=== PATIENT | male | born 1980 | race Caucasian/White ===

== ENCOUNTER 2021-04-24 12:33 | Emergency (ER) | payer OTHER, SELFPAY ==
--- NOTE | ~2021-04-24 | CT_ITS ---
EXAMINATION: CT ANGIOGRAM ABDOMEN AND PELVIS CLINICAL INFORMATION: Pain. Rule out dissection. COMPARISON: None TECHNIQUE: Multiple axial images were obtained through the abdomen and pelvis following the administration of 85 mL of Omnipaque 350 intravenous contrast. Images were reviewed on a dedicated 3-D workstation. This CT examination was performed using dose optimization techniques as appropriate, variously including the following: *Automated exposure control *Adjustment of mA and/or kV according to patient size (this includes techniques or standardized protocols for targeted exams where dose is matched to indication/reason for exam; i.e. extremities or head) *Use of iterative reconstruction technique DLP: [address] of the chest, abdomen and pelvis mGy-cm FINDINGS: The abdominal aorta is normal in caliber. No evidence of aneurysm or dissection is seen. The celiac axis, SMA and BISI are patent. There are 2 renal arteries bilaterally. There is a small accessory right renal artery supplying the upper pole. There is a small accessory left renal artery supplying the lower pole. The common, internal and external iliac and common femoral arteries are patent and normal in caliber. The femoral bifurcations are patent. The liver appears enlarged and low in attenuation suggestive of fatty infiltration. Liver is otherwise unremarkable. No focal liver lesion or biliary duct dilatation. The gallbladder is normal. The spleen is enlarged and measures 15 cm in length. Pancreas is normal. The adrenal glands and kidneys are normal. The bladder and prostate gland are normal. Small and large bowel is unremarkable. The appendix is unremarkable. The stomach is unremarkable. No ascites. No free air. No adenopathy. There is a small umbilical hernia containing fat. There is a right inguinal hernia containing fat. Review of bone windows is normal. CT/CT angio abdomen pelvis IMPRESSION: Accessory renal arteries bilaterally otherwise normal CTA of the abdomen and pelvis. No evidence of aneurysm or dissection. Enlarged fatty liver and enlarged spleen. Fleischner guidelines were followed.
--- NOTE | ~2021-04-24 | CT_ITS ---
EXAMINATION: CT ANGIOGRAM CHEST CLINICAL INFORMATION: Chest pain. Rule out dissection. COMPARISON: None TECHNIQUE: Multiple axial images were obtained through the chest after the administration of 85 mL of Omnipaque 350 intravenous contrast. Extensive vascular post-processing including two-dimensional and three-dimensional reformatted images were created and reviewed on an independent workstation. This CT examination was performed using dose optimization techniques as appropriate, variously including the following: *Automated exposure control *Adjustment of mA and/or kV according to patient size (this includes techniques or standardized protocols for targeted exams where dose is matched to indication/reason for exam; i.e. extremities or head) *Use of iterative reconstruction technique DLP: 613 mGy-cm for combined CT of the chest, abdomen and pelvis FINDINGS: The thoracic aorta is normal in caliber. No aneurysm or dissection is seen. The great vessel origins are patent and normal in caliber. The heart does not appear enlarged. There is no pericardial effusion. There are no enlarged hilar or mediastinal lymph nodes. No pulmonary embolism is seen. The lungs are clear. There is no pleural effusion, pleural thickening or pneumothorax. No chest wall mass or enlarged axillary lymph nodes are seen. Review of bone windows is normal. CT/CT angio chest aorta IMPRESSION: Normal chest CTA. No evidence of aneurysm or dissection. Fleischner guidelines were followed.
--- NOTE | 2021-04-24 12:35 | ECG_ITS ---
Test Reason : CHEST PAIN Blood Pressure : / mmHG Vent. Rate : 084 BPM Atrial Rate : 084 BPM P-R Int : 158 ms QRS Dur : 100 ms QT Int : 354 ms P-R-T Axes : 033 -28 007 degrees QTc Int : 418 ms Normal sinus rhythm Minimal voltage criteria for LVH, may be normal variant ( [place] product ) Borderline ECG No previous ECGs available Referred By: Generic ED Physician Electronically Signed By:MAYRA JAQUEZ MD
[2021-04-24 12:57] VITALS: BP 155/101; PULSE 85; RESP 16; TEMP 37.2; O2SAT 97; BMI 27.9
--- NOTE | 2021-04-24 12:57 | ED.CHESTPAIN ---
HPI - Chest Pain General Chief Complaint: Chest Pain Stated Complaint: CP Time Seen by Provider: 04/24/21 12:56 Source: patient and EMS Mode of arrival: EMS Limitations: no limitations History of Present Illness HPI narrative: Patient is a 40 year old male presenting to the emergency department today with chest pain. Patient states that 2 hours ago, he began to have chest pain that he describes as being heavy and on his left side. Patient states that he does not have any cardiac problems. Patient states that he was diagnosed with a lung issue last week by his PCP and given a steroid which he finished last Saturday. Patient states that he has a history of Type 2 diabetes. Patient denies any dizziness, lightheadedness, abdominal pain, nausea, vomiting, fever, chills, blurry vision, double vision, loss of vision, difficulty breathing, shortness of breath, back pain, night sweats, pain with urination, increased urinary frequency, increased urinary urgency, blood in his urine or stool, syncope or a near syncopal episode, recent trauma or falls, bowel incontinence, bladder incontinence, bowel retention, bladder retention, or any other complaints at this time. MD complaint: chest pain Onset (ago): minute(s) Timing of current episode: constant Prior episodes: No Onset: during exertion Pain location: substernal and left chest Pain radiation: none Severity: mild Pain scale (0-10): 4 Quality: dull Relieving factors: nothing Exacerbating factors: nothing Context: recent illness Associated symptoms: diaphoresis Treatment prior to arrival: aspirin Risk Factors Coronary artery disease risk factors: diabetes Thoracic aortic dissection risk factors: none Related Data Allergies Allergy/AdvReac Type Severity Reaction Status Date / Time No Known Allergies Allergy Unverified 12/17/19 15:16 Review of Systems Constitutional: Constitutional: Reports no additional constitutional complaints, Denies chills, Denies fever(s) and Denies night sweats Eyes: Eyes: Reports no additional eye complaints, Denies blurry vision, Denies change in vision, Denies diplopia, Denies eye discharge, Denies loss of vision and Denies eye pain ENT: Denies dizziness Cardiovascular: Cardiovascular: Reports no additional cardiovascular complaints, Reports chest pain, Denies lightheadedness, Denies Loss of Consciousness and Denies dyspnea Respiratory: Respiratory: Reports no additional respiratory complaints and Denies dyspnea Gastrointestinal: Gastrointestinal: Reports no additional gastrointestinal complaints, Denies abdominal pain, Denies melena, Denies hematochezia, Denies change in bowel habits and Denies change in stool character Genitourinary: Genitourinary: Reports no additional male genitourinary complaints, Denies hematuria, Denies oliguria, Denies difficulty urinating, Denies dysuria, Denies urinary frequency, Denies urinary hesitancy, Denies urinary incontinence and Denies urinary urgency Musculoskeletal: Musculoskeletal: Reports no additional musculoskeletal complaints, Denies numbness and Denies tingling Neurologic: Denies dizziness, Denies loss of vision, Denies numbness and Denies tingling Psychiatric: Psychiatric: Reports no additional psychiatric complaints Endocrine: Endocrine: Reports no additional endocrine complaints Hematologic/Lymphatic: Hematologic/Lymphatic: Reports no additional hematologic/lymphatic complaints Allergic/Immunologic: Allergic/Immunologic: Reports no additional allergic/immunologic complaints PMFSH Past Medical History Attestation statement: The following information was validated with the patient. Medical History (Updated 04/24/21 @ 16:33 by LAKSHMI Gomez) Diabetes Social History Social History Advance Directives: No Advance Directives Information Provided: No Physical Exam Vital Signs: Vital Signs: Last Vital Signs Temp 98.9 F 04/24/21 12:57 Pulse 85 04/24/21 12:57 Resp 16 04/24/21 12:57 BP 155/101 H 04/24/21 12:57 Pulse Ox 97 04/24/21 12:57 BMI result Body Mass Index 27.9 Const: General: cooperative, no acute distress, alert and awake Nutritional Appearance: well nourished Orientation/consciousness: patient oriented x3 Limitations: no limitations HENMT: Head: Yes normal to inspection and Yes atraumatic Ears: hearing grossly normal bilaterally and external ears normal General nose exam: Normal external nose present, no nasal discharge noted and no epistaxis Face and sinus: Yes normal facial exam, No abrasion and No laceration Mouth: Normal oral and palatal mucosa present, no drooling and no muffled voice Eyes: General: appearance normal, both eyes and all related structures Periorbital: periorbital findings normal Eyelids: Yes eyelids normal Conjunctivae: conjunctivae normal Pupils: Equal, round and reactive pupils present EOM: EOMs intact bilaterally Neck: Neck: Yes normal visual inspection, Yes full ROM and Yes no lymphadenopathy Chest: Chest palpation & inspection: normal inspection of the chest Resp: Effort & Inspection: normal respiratory effort and able to speak in complete sentences Auscultation: clear to auscultation bilaterally Cardio: Jugular venous distension: no JVD Rate: regular rate Rhythm: regular rhythm GI: Inspection: Yes normal to inspection Neuro: General: patient oriented x3 and moves all extremities Cranial nerves: Yes Equal, round and reactive pupils present Cognition (Neuro): normal cognition Motor exam (neuro): 5/5 motor strength present throughout Sensory Exam: Normal double simultaneous stimulation for sensation Coordination: [id number] test normal Extrem: General: Yes normal to inspection, Yes full ROM and Yes capillary refill normal Psych: Appearance: grossly normal Mental Status: mental status grossly normal Affect: normal affect Attitude: cooperative Thought process: Normal thought process present Thought content: Normal thought content present Insight: Good insight present (Psych) Course Course Course Narrative: Chest CTA showed no acute process. Abdominal CTA showed: Accessory renal arteries bilaterally. No evidence of aneurysm or dissection. Enlarged fatty liver Enlarged spleen. MDM - Chest Pain MDM Narrative Medical decision making narrative: Patient is a 40 year old male presenting to the emergency department today with chest pain. Patient's physical exam was unremarkable. Patient's blood work showed an elevated blood sugar however, this is not abnormal as the patient just completed oral steroids and is a type 2 diabetic. Patient's EKG was unremarkable. Patient's CTA of the chest showed no acute process. Patient's CTA of the abdomen showed fatty liver and an enlarged spleen but was otherwise negative. I explained my physical exam findings as well as all test results to the patient. I answered all questions asked by the patient. Patient received IV fluids and full dose aspirin which he stated helped his symptoms significantly. I stressed the importance of the patient taking his medication as prescribed. 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 I stressed the importance of the patient returning to the emergency department immediately if his symptoms were to worsen or if he were to develop any dizziness, shortness of breath, difficulty breathing, chest pain, blurry vision, loss of vision, nausea, vomiting, abdominal pain, fever, chills, back pain, or any other complaints. Patient verbalized agreement and understanding with this treatment plan and discharge. Differential Diagnosis Differential diagnosis: Likely stable angina, unstable angina pectoris, atypical chest pain and st elevation myocardial infarction Medical Records Data Attestation: I reviewed the patient's medical records. Lab Data Attestation: I reviewed the patient's lab results. Result diagrams: 04/24/21 14:07 04/24/21 14:06 Labs: Lab Results 04/24/21 04/24/21 04/24/21 Range/Units 14:06 14:06 14:07 WBC 4.0 L (4.8-10.8) X10*3/uL RBC 5.34 (4.60-5.80) X10*6/uL Hgb 16.1 (14.0-18.0) g/dl Hct 44.5 (42.0-52.0) % MCV 83.3 (80.0-98.0) fL MCH 30.1 (27.0-33.0) pg MCHC 36.2 H (31.0-36.0) g/dl RDW 11.7 (11.0-16.0) % Plt Count 203 (160-400) X10*3/uL MPV 11.0 (9.4-12.4) fL Immature Gran % (Auto) 0.5 H (0.0-0.4) % Neut % (Auto) 56.4 (45-73) % Lymph % (Auto) 29.2 (20-40) % [place] % (Auto) 11.9 H (2-11) % Eos % (Auto) 1.5 (0-4) % Baso % (Auto) 0.5 (0-2) % Lymph # (Auto) 1.2 (1.2-4.9) X10*3/uL [place] # (Auto) 0.5 (0.1-1.2) X10*3/uL Eos # (Auto) 0.1 (0.0-0.4) X10*3/uL Baso # (Auto) 0.0 (0.0-0.2) X10*3/uL Abs Immat Gran (auto) 0.02 (0.00-0.03) X10*3/uL Absolute Neuts (auto) 2.3 (2.0-8.3) x10*3/uL Absolute Nucleated RBC 0.000 (0.0-0.012) X10*3/uL Nucleated RBC % (auto) 0.0 (0.0-0.2) /100WBC PT (9.9-13.0) SEC INR (0.9-1.1) APTT (24.1-38.0) SEC Sodium 134 L (135-145) mmol/L Potassium 4.4 (3.3-5.1) mmol/L Chloride 102 (96-108) mmol/L Carbon Dioxide 23 (22-29) mmol/L Anion Gap 13 (12-20) BUN 10 (9-16) mg/dL Creatinine 0.85 (0.5-1.4) mg/dL Estim Creat Clear Calc 126.7 Estimated GFR > 60 Fasting Glucose 321 H (60-99) mg/dL Lactic Acid (0.5-2.0) mmol/L Calcium 10.1 (8.4-10.2) mg/dL Magnesium 2.2 (1.6-2.6) mg/dL Total Bilirubin 0.8 (0.0-1.0) mg/dL AST 25 (5-37) U/L ALT 41 H (0-40) U/L Alkaline Phosphatase 73 (39-117) U/L Troponin I High Sens (<3.5-35.0) ng/L Total Protein 7.2 (6.5-8.0) g/dL Albumin 4.6 (3.5-5.0) g/dL Urine Color YELLOW Urine Appearance CLEAR Urine pH 5.5 (5.0-8.0) Ur Specific Wilmer 1.015 (1.005-1.025) Urine Protein NEG (NEG-TRACE) MG/DL Urine Glucose (UA) >=1000 H (NEG) MG/DL Urine Ketones NEG (NEG) MG/DL Urine Blood NEG (NEG) Urine Nitrite NEG (NEG) Ur Leukocyte Esterase NEG (NEG) Urine RBC 0 (0) /HPF Urine WBC 0 (0-4) /HPF Ur Squamous Epith Cells NONE /LPF Urine Bacteria NONE /LPF COVID-19 (JAZIEL) (Negative) COVID-19 Clin Com Influenza Type A (HUSEYIN) (Negative) Influenza Type B (HUSEYIN) (Negative) Influenza A & B Note 04/24/21 04/24/21 04/24/21 Range/Units 14:07 14:07 14:07 WBC (4.8-10.8) X10*3/uL RBC (4.60-5.80) X10*6/uL Hgb (14.0-18.0) g/dl Hct (42.0-52.0) % MCV (80.0-98.0) fL MCH (27.0-33.0) pg MCHC (31.0-36.0) g/dl RDW (11.0-16.0) % Plt Count (160-400) X10*3/uL MPV (9.4-12.4) fL Immature Gran % (Auto) (0.0-0.4) % Neut % (Auto) (45-73) % Lymph % (Auto) (20-40) % [place] % (Auto) (2-11) % Eos % (Auto) (0-4) % Baso % (Auto) (0-2) % Lymph # (Auto) (1.2-4.9) X10*3/uL [place] # (Auto) (0.1-1.2) X10*3/uL Eos # (Auto) (0.0-0.4) X10*3/uL Baso # (Auto) (0.0-0.2) X10*3/uL Abs Immat Gran (auto) (0.00-0.03) X10*3/uL Absolute Neuts (auto) (2.0-8.3) x10*3/uL Absolute Nucleated RBC (0.0-0.012) X10*3/uL Nucleated RBC % (auto) (0.0-0.2) /100WBC PT 10.7 (9.9-13.0) SEC INR 0.9 (0.9-1.1) APTT 29.9 (24.1-38.0) SEC Sodium (135-145) mmol/L Potassium (3.3-5.1) mmol/L Chloride (96-108) mmol/L Carbon Dioxide (22-29) mmol/L Anion Gap (12-20) BUN (9-16) mg/dL Creatinine (0.5-1.4) mg/dL Estim Creat Clear Calc Estimated GFR Fasting Glucose (60-99) mg/dL Lactic Acid 1.8 (0.5-2.0) mmol/L Calcium (8.4-10.2) mg/dL Magnesium (1.6-2.6) mg/dL Total Bilirubin (0.0-1.0) mg/dL AST (5-37) U/L ALT (0-40) U/L Alkaline Phosphatase (39-117) U/L Troponin I High Sens < 3.5 (<3.5-35.0) ng/L Total Protein (6.5-8.0) g/dL Albumin (3.5-5.0) g/dL Urine Color Urine Appearance Urine pH (5.0-8.0) Ur Specific Wilmer (1.005-1.025) Urine Protein (NEG-TRACE) MG/DL Urine Glucose (UA) (NEG) MG/DL Urine Ketones (NEG) MG/DL Urine Blood (NEG) Urine Nitrite (NEG) Ur Leukocyte Esterase (NEG) Urine RBC (0) /HPF Urine WBC (0-4) /HPF Ur Squamous Epith Cells /LPF Urine Bacteria /LPF COVID-19 (JAZIEL) (Negative) COVID-19 Clin Com Influenza Type A (HUSEYIN) (Negative) Influenza Type B (HUSEYIN) (Negative) Influenza A & B Note 04/24/21 04/24/21 04/24/21 Range/Units 14:07 14:07 15:09 WBC (4.8-10.8) X10*3/uL RBC (4.60-5.80) X10*6/uL Hgb (14.0-18.0) g/dl Hct (42.0-52.0) % MCV (80.0-98.0) fL MCH (27.0-33.0) pg MCHC (31.0-36.0) g/dl RDW (11.0-16.0) % Plt Count (160-400) X10*3/uL MPV (9.4-12.4) fL Immature Gran % (Auto) (0.0-0.4) % Neut % (Auto) (45-73) % Lymph % (Auto) (20-40) % [place] % (Auto) (2-11) % Eos % (Auto) (0-4) % Baso % (Auto) (0-2) % Lymph # (Auto) (1.2-4.9) X10*3/uL [place] # (Auto) (0.1-1.2) X10*3/uL Eos # (Auto) (0.0-0.4) X10*3/uL Baso # (Auto) (0.0-0.2) X10*3/uL Abs Immat Gran (auto) (0.00-0.03) X10*3/uL Absolute Neuts (auto) (2.0-8.3) x10*3/uL Absolute Nucleated RBC (0.0-0.012) X10*3/uL Nucleated RBC % (auto) (0.0-0.2) /100WBC PT (9.9-13.0) SEC INR (0.9-1.1) APTT (24.1-38.0) SEC Sodium (135-145) mmol/L Potassium (3.3-5.1) mmol/L Chloride (96-108) mmol/L Carbon Dioxide (22-29) mmol/L Anion Gap (12-20) BUN (9-16) mg/dL Creatinine (0.5-1.4) mg/dL Estim Creat Clear Calc Estimated GFR Fasting Glucose (60-99) mg/dL Lactic Acid (0.5-2.0) mmol/L Calcium (8.4-10.2) mg/dL Magnesium (1.6-2.6) mg/dL Total Bilirubin (0.0-1.0) mg/dL AST (5-37) U/L ALT (0-40) U/L Alkaline Phosphatase (39-117) U/L Troponin I High Sens < 3.5 (<3.5-35.0) ng/L Total Protein (6.5-8.0) g/dL Albumin (3.5-5.0) g/dL Urine Color Urine Appearance Urine pH (5.0-8.0) Ur Specific Wilmer (1.005-1.025) Urine Protein (NEG-TRACE) MG/DL Urine Glucose (UA) (NEG) MG/DL Urine Ketones (NEG) MG/DL Urine Blood (NEG) Urine Nitrite (NEG) Ur Leukocyte Esterase (NEG) Urine RBC (0) /HPF Urine WBC (0-4) /HPF Ur Squamous Epith Cells /LPF Urine Bacteria /LPF COVID-19 (JAZIEL) Negative (Negative) COVID-19 Clin Com See Note Influenza Type A (HUSEYIN) Negative (Negative) Influenza Type B (HUSEYIN) Negative (Negative) Influenza A & B Note See Note ECG Data ECG #1: Attestation: I personally reviewed and interpreted this ECG as follows: ECG interpretation date: 04/24/21 ECG interpretation time: 12:55 Prior ECG tracings: not available for review Interpretation: Normal sinus rhythm Discharge Plan Discharge Clinical Impression: Atypical chest pain Patient Disposition: Home, Self-Care Instructions: Chest Pain (ED) Referrals: Ana Morales MD [Primary Care Provider] - 2 days Drake Harper MD [Physician] - 2 days Print Language: Bermudian
[2021-04-24 13:03] VITALS: BP 153/93; PULSE 85; O2SAT 98
[2021-04-24] MEDS: 0.9 % Sodium Chloride 1,000 ML 999 ML IVCONT (14:00)
[2021-04-24 14:14] LABS: MANUAL DIFF FLAG NO
[2021-04-24 14:16] LABS: Basophils Percent Auto 0.5 % (0-2); Eosinophils Absolute Auto 0.1 X10*3/uL (0.0-0.4); Eosinophils Percent Auto 1.5 % (0-4); Hematocrit 44.5 % (42.0-52.0); Hemoglobin 16.1 g/dl (14.0-18.0); Imm Gran Abs Auto 0.02 X10*3/uL (0.00-0.03); Imm Gran Pct Auto 0.5 % (0.0-0.4); Lymphocytes Absolute Auto 1.2 X10*3/uL (1.2-4.9); Lymphocytes Percent Auto 29.2 % (20-40); Mean Corpuscular HGB Conc 36.2 g/dl (31.0-36.0); Mean Corpuscular Hemoglobin 30.1 pg (27.0-33.0); Mean Corpuscular Volume 83.3 fL (80.0-98.0); Monocytes Absolute Auto 0.5 X10*3/uL (0.1-1.2); Monocytes Percent Auto 11.9 % (2-11); Neutrophils Absolute Auto 2.3 x10*3/uL (2.0-8.3); Neutrophils Percent Auto 56.4 % (45-73); Platelet Count 203 X10*3/uL (160-400); Red Blood Count 5.34 X10*6/uL (4.60-5.80); Red Cell Distribution Width 11.7 % (11.0-16.0)
[2021-04-24 14:21] LABS: INTERNATIONAL NORM RATIO 0.9 (0.9-1.1); Prothrombin Time 10.7 SEC (9.9-13.0)
[2021-04-24 14:23] LABS: Appearance Urine CLEAR; Color Urine YELLOW; Glucose Urine UA >=1000 MG/DL (NEG); Leukocyte Esterase Urine NEG (NEG); Nitrite Urine NEG (NEG); PH 5.5 (5.0-8.0); Specific Gravity - Urine 1.015 (1.005-1.025); Urine Blood NEG (NEG); Urine Ketones NEG (NEG); Urine Protein NEG (NEG-TRACE)
[2021-04-24 14:23] LABS: Partial Thromboplastin Time 29.9 SEC (24.1-38.0)
[2021-04-24 14:25] LABS: Lactic Acid 1.8 mmol/L (0.5-2.0)
[2021-04-24 14:30] LABS: Alanine Aminotransferase 41 U/L (0-40); Albumin Level 4.6 g/dL (3.5-5.0); Alkaline Phosphatase 73 U/L (39-117); Anion Gap 13 (12-20); Aspartate Amino Transferase 25 U/L (5-37); Bilirubin Total 0.8 mg/dL (0.0-1.0); Blood Urea Nitrogen 10 mg/dL (9-16); Calcium 10.1 mg/dL (8.4-10.2); Carbon Dioxide 23 mmol/L (22-29); Chloride 102 mmol/L (96-108); Creatinine Clr Calc Pharmacy 126.7; Estimated Glomerular Filt Rate > 60; Glucose Fasting 321 mg/dL (60-99); Magnesium 2.2 mg/dL (1.6-2.6); Potassium 4.4 mmol/L (3.3-5.1); Sodium 134 mmol/L (135-145); Total Protein 7.2 g/dL (6.5-8.0)
[2021-04-24 14:32] LABS: IDNOW Serial# 9DD0AD1C; Influenza A Negative (Negative); Influenza B2 Negative (Negative)
[2021-04-24 14:36] LABS: COVID-19 Test Negative (Negative); Troponin-I High Sensitivity < 3.5 ng/L (<3.5-35.0)
[2021-04-24 14:38] LABS: RBC Urine 0 /HPF (0); WBC Urine 0 /HPF (0-4)
[2021-04-24] MEDS: iohexoL 350 MG/ML 100 ML INFUS..BTL IV (15:08)
[2021-04-24 15:37] LABS: Troponin-I High Sensitivity < 3.5 ng/L (<3.5-35.0)
== END 2021-04-24 16:45 | disposition home or self-care (01) ==
PROVIDERS: Physician Assistant Medical; Emergency Provider Emergency Medicine; PCP Internal Medicine
DX: R07.89 Other chest pain (principal); Z20.822 Contact with and (suspected) exposure to COVID-19; E11.9 Type 2 diabetes mellitus without complications
CPT/HCPCS: 71275; 74174; 80053; 81001; 83605; 83735; 84484; 85025; 85610; 85730; 87040; 87502; 87635; 93005; 96360; 99284; Q9967

== ENCOUNTER 2023-05-30 13:03 | Outpatient (AMB) | payer OTHER, SELFPAY ==
--- NOTE | 2023-05-30 13:41 | MHC.OFFWIV ---
Intake Vital Signs 05/30/23 13:49 Weight 192 lb 6 oz BP 130/78 Blood Pressure Location Rt brachial Position Sitting Pulse 80 Pulse Source Pulse Oximeter Pulse Oximetry (%) 96 Oxygen Delivery Method Room Air Intake Visit Reasons: EP ?Ear infection/Sore throat/cough [phone] Intake Note: Patient here for bilat ear pain, cough and sore throat which has been present for about 3 weeks. Patient Tobacco Use Status: Never used Tobacco Allergies No Known Allergies Allergy (Verified 05/30/23 13:42) Do you need a note to return to daycare/school/sports/work: No HPI HPI Comments History of Present Illness Details 43 y/o male patient who presents to the walk in clinic with c/o cough, and sore-throat for 3 weeks. He was seen by his PCP 3 wks ago who prescribed Prednisone and Benzonanate with no relief. Denies fevers, chills, nausea or vomiting. Denies any recent sick contacts. [facility] Medical History Diabetes Social History Patient Tobacco Use Status: Never used Tobacco Review of Systems Const All systems reviewed & are unremarkable except as noted in HPI and below Physical Exam Vital Signs: Last Vital Signs Pulse 80 05/30/23 13:49 BP 130/78 05/30/23 13:49 Pulse Ox 96 05/30/23 13:49 Oxygen Delivery Method Room Air 05/30/23 13:49 Const General: comfortable and no acute distress Orientation/consciousness: patient oriented x3 HEENT Head: Yes normocephalic Ears: external ears normal and TM's normal bilaterally General nose exam: Abnormal mucous membranes and turbinates present boggy and erythematous Face and sinus: Yes sinuses nontender Mouth: moist mucous membranes Throat: Yes postnasal drainage Resp Effort & Inspection: normal respiratory effort, able to speak in complete sentences and Actively coughing Auscultation: clear to auscultation bilaterally, no crackles, no rales, no rhonchi and no wheezes Cardio Rate: regular rate Rhythm: regular rhythm Neuro General: patient oriented x3 Assessment & Plan Assessment & Plan (1) Acute bronchitis: Code(s): J20.9 - Acute bronchitis, unspecified Qualifiers: Bronchitis organism: unspecified organism Qualified Code(s): J20.9 - Acute bronchitis, unspecified Plan: - take medicine as directed - OTC remedies. Orders: Orders SARS-CoV2/FLU/RSV Today J20.9 - Acute bronchitis, unspecified Medications: New azithromycin 500 mg PO DAILY 3 days 3 tabs 0RF J20.9 - Acute bronchitis, unspecified acetaminophen-codeine 120-12 mg/5 mL 5 mL PO Q8H 473 mL 0RF J20.9 - Acute bronchitis, unspecified Coding Level of Care Code Est Pt Level 3 (34053) Diagnoses Acute bronchitis, unspecified organism J20.9 Bronchitis organism: unspecified organism Time Spent (min) 15
[2023-05-30 13:49] VITALS: BP 130/78; PULSE 80; O2SAT 96
== END 2023-05-30 14:50 | disposition home or self-care (01) ==
PROVIDERS: PCP Internal Medicine; Visit Provider Nurse Practitioner Family
DX: J20.9 Acute bronchitis, unspecified (principal)
CPT/HCPCS: 99213

== ENCOUNTER 2023-05-30 14:21 | Outpatient (REF) | payer OTHER, SELFPAY ==
[2023-05-30 18:10] LABS: Influenza A PCR NEGATIVE (Negative); Influenza B PCR NEGATIVE (Negative); Resp Syncy Virus RNA Qual PCR NEGATIVE (Negative); SARS COV2 PCR INHOUSE NEGATIVE (Negative)
== END 2023-05-30 14:22 | disposition home or self-care (01) ==
LOC: HO.LAB 14:21
PROVIDERS: Visit Provider Nurse Practitioner Family
DX: Z11.52 Encounter for screening for COVID-19 (principal); Z20.822 Contact with and (suspected) exposure to COVID-19; J20.9 Acute bronchitis, unspecified
CPT/HCPCS: 0241U

== ENCOUNTER 2023-06-28 13:24 | Outpatient (AMB) | payer OTHER, SELFPAY ==
[2023-06-28 13:25] VITALS: BP 120/90; PULSE 102; TEMP 36.2; O2SAT 97; BMI 27.0
--- NOTE | 2023-06-28 13:25 | AM.OFFWIN_ITS ---
Intake Vital Signs 06/28/23 13:25 Height 5 ft 10 in Weight 188 lb BMI 27.0 BP 120/90 H Blood Pressure Location Lt brachial Position Sitting Pulse 102 H Pulse Source Pulse Oximeter Temp 97.1 F Temp Source Temporal Artery Scan Pulse Oximetry (%) 97 Oxygen Delivery Method Room Air Intake Visit Reasons: EP cough Intake Note: pt is here today for cough started 2 months ago Patient Tobacco Use Status: Never used Tobacco Allergies No Known Allergies Allergy (Verified 06/28/23 13:29) Do you need a note to return to daycare/school/sports/work: No HPI HPI Comments History of Present Illness Details 43 y/o male patient who presents to walk in clinic with c/o Cough for w eeks now. Pt was seen by me for similar symptoms and was prescribed medicines - reports feeling better but Temporally. SARs was negative then. Denies fevers, chills, nausea or vomiting. PFSH Medical History Diabetes Social History Patient Tobacco Use Status: Never used Tobacco Review of Systems Const All systems reviewed & are unremarkable except as noted in HPI and below Physical Exam Vital Signs: Last Vital Signs Temp 97.1 F 06/28/23 13:25 Pulse 102 H 06/28/23 13:25 BP 120/90 H 06/28/23 13:25 Pulse Ox 97 06/28/23 13:25 Oxygen Delivery Method Room Air 06/28/23 13:25 BMI result Body Mass Index 27.0 Const General: no acute distress; No comfortable Orientation/consciousness: patient oriented x3 Resp Effort & Inspection: normal respiratory effort, able to speak in complete sentences and Actively coughing Quality: actively coughing Auscultation: clear to auscultation bilaterally, no crackles, no rales, no rhonchi and no wheezes Cardio Rate: regular rate Rhythm: regular rhythm Neuro General: patient oriented x3, gait normal and moves all extremities Psych Speech and movement: Normal speech and movement present Attitude: cooperative Assessment & Plan Assessment & Plan (1) Acute bronchitis: Code(s): J20.9 - Acute bronchitis, unspecified Qualifiers: Bronchitis organism: unspecified organism Qualified Code(s): J20.9 - Acute bronchitis, unspecified Plan: - Chest Xray - Take medications as directed - Rest and hydrate with warm fluids - RTC if not better or worse. Orders: Orders XR chest 2V Today J20.9 - Acute bronchitis, unspecified Medications: New sulfamethoxazole-trimethoprim 800-160 mg (Bactrim DS) 1 tab PO Q12H 10 days 20 tabs 0RF J20.9 - Acute bronchitis, unspecified acetaminophen-codeine 120-12 mg/5 mL 10 mL PO Q8H 473 mL 0RF cough J20.9 - Acute bronchitis, unspecified prednisone 50 mg PO DAILY 5 days 5 tabs 0RF J20.9 - Acute bronchitis, unspecified Coding Level of Care Code Est Pt Level 3 (56786) Diagnoses Acute bronchitis, unspecified organism J20.9 Bronchitis organism: unspecified organism Time Spent (min) 15
== END 2023-06-28 14:43 | disposition home or self-care (01) ==
PROVIDERS: PCP Internal Medicine; Visit Provider Nurse Practitioner Family
DX: J20.9 Acute bronchitis, unspecified (principal)
CPT/HCPCS: 99213

== ENCOUNTER 2023-06-28 13:40 | Outpatient (REF) | payer OTHER, SELFPAY ==
--- NOTE | ~2023-06-28 | XR_ITS ---
EXAMINATION: XR CHEST CLINICAL INFORMATION: Acute bronchitis COMPARISON: None available. TECHNIQUE: 2 views of the chest were obtained. FINDINGS: No significant abnormality is noted involving the heart, lungs, mediastinum, bony thorax or soft tissues. XR/XR chest 2V IMPRESSION: Unremarkable examination.
== END 2023-06-28 13:41 | disposition home or self-care (01) ==
LOC: HO.HMGCX 13:40
PROVIDERS: PCP Internal Medicine; Visit Provider Nurse Practitioner Family
DX: J20.9 Acute bronchitis, unspecified (principal)
CPT/HCPCS: 71046

== ENCOUNTER 2024-08-11 07:59 | Outpatient (AMB) | payer OTHER, SELFPAY ==
--- OUTSIDE RECORDS SUMMARY | 2024-08-11 08:01 | XMS_ITS | Encounter Summary ---
Author Organization [facility] Address [address] [place] [address] Care Team Providers Care Journalists And Other Writers Name Role Phone Lynn Jackson MD Primary Care Provider [phone] Reason for Visit * Reason Comments Shortness of Breath Chest Pain 2 days chest pain an d SOB Encounter Details Date Type Department Care Team (Late st Contact Info) Description 08/10/2024 1:08 PM EDT - 08/10/2024 6:15 PM EDT Emergency [facility] Emergency [address] [place] [phone] Shay Luna MD [address] [place] [address] Angelica Tinsley DO [address] [place] [address] Dyspnea, unspecified type (Primary Dx); Chronic cough Discharge Disposition: Home or Self Care Social History Tobacco Use Types Packs/Day Years Used Date Smoking Tobacco: Never Smokeless Tobacco: Never Quit: 01/23/2002 Alcohol Use Standard Drinks/Week Comments No 0 (1 standard drink = 0.6 oz pur e alcohol) Sex and Gender Information Value Date Recorded Sex Assigned at Not on file Legal Sex Male 10:41 AM EST Gender Identity Not on file Sexual Orientation Not on file documented as of this encounter Last Filed Vital Signs Vital Sign Reading Time Taken Comments Blood Pressure 154/90 08/10/2024 3:54 PM EDT Pulse 81 08/10/2024 1:45 PM EDT Temperature 37.2 ??C (99 ??F) 08/10/2024 3:54 PM EDT Respiratory Rate 20 08/10/2024 3:54 PM EDT Oxygen Saturation 100% 08/10/2024 1:45 PM EDT Inhaled Oxygen Concentration - - Weight 83.9 kg (185 lb) 08/10/2024 11:37 AM EDT Height 177.8 cm (5' 10 ) 08/10/2024 11:37 AM EDT Body Mass Index 26.54 08/10/2024 11:37 AM EDT documented in this encounter Medications at Time of Discharge albuterol 2.5 mg /3 mL (0.083 %) nebulizer solutionIndicatio ns:Chronic cough,Moderate persistent asthma with acute exacerbation,Acut e bronchitis, unspecified organism Take 3 mL (2.5 mg total) by nebulization every 6 (six) hours if needed for wheezing. 300 mL 1 07/15/2024 albuterol HFA (PROAIR HFA ; PROVENTIL HFA ; VENTOLIN HFA) 90 mcg/actuation inhalerIndication s:Moderate persistent asthma without complication,Mode rate persistent asthma with acute exacerbation INHALE 2 PUFFS INTO LUNGS EVERY 6 HOURS IF NEEDED FOR WHEEZING OR SHORTNESS OF BREATH (COUGH, CHEST) 18 each 2 07/02/2024 atorvastatin (LIPITOR) 10 mg tablet Take 1 tablet (10 mg total) by mouth 1 (one) time each day. 90 tablet 1 06/29/2024 blood sugar diagnostic (FreeStyle Lite Strips) test strip Check fasting glucose once daily 12/09/2020 blood-glucose meter kit To test fasting sugar daily 12/09/2020 budesonide-formot Kain (Symbicort) 160-4.5 mcg/actuation inhalerIndication s:Moderate persistent asthma without complication Inhale 2 puffs by mouth 2 (two) times a day. Rinse mouth with water after use to reduce aftertaste and incidence of candidiasis. Do not swallow. 30.6 g 1 06/25/2024 dulaglutide (Trulicity) 0.75 mg/0.5 mL pen injector injection Inject 0.5 mL (0.75 mg total) under the skin 1 (one) time per week. 2 mL 2 06/29/2024 fluticasone propionate (FLONASE) 50 mcg/actuation nasal spray 09/18/2023 FREESTYLE LANCETS MIS Check fasting gluocse once daily 12/09/2020 loratadine (CLARITIN) 10 mg tabletIndications :Chronic cough,Moderate persistent asthma with acute exacerbation Take 1 tablet (10 mg total) by mouth 1 (one) time each day. 90 each 3 07/15/2024 metFORMIN XR (GLUCOPHAGE-XR) 500 mg 24 hr tablet Take 4 tablets (2,000 mg total) by mouth 1 (one) time each day. Do not crush, chew, or split. 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 30 each 2 06/25/2024 6 omeprazole (PriLOSEC) [address] capsuleIndication s:Chronic cough,Gastroesoph ageal reflux disease, unspecified whether esophagitis present Take 1 capsule (40 mg total) by mouth 1 (one) time each day. Do not crush or chew. 30 each 07/27/2024 6 documented as of this encounter Discharge Disposition Disposition Code Departure Means Destination Comment s Home or Self Care documented in this encounter Progress Notes * Ada Tinoco RN - 08/10/2024 4:03 PM EDT Pt's skin noted to be very flushed / red (more notably in face and chest) - pt states that he is a diabetic and when his sugar is really high he can get very flushed. POCT glucose obtained and resulted at 218. Glucose from lab work this morning read 303, states he was unable to get his Trulicity shot this week. Takes metformin as well. Vital signs stable. Afebrile. Provider aware. * Angelica Tinsley, - 08/10/2024 3:25 PM EDT ED Course as of 08/10/242324August 10, 2024 1357 EKG with normal sinus rhythm no ischemic changes or ST segment elevation. [MK] 1525 Patient signed out to me pending CT imaging. Zithromax will be ordered for patient here. [TC] 2[address] CT [address] CT chest imaging were negative. Patient does feel comfortable going home and following with his outpatient doctors. He does have a lung procedure soon. Patient has trial Zithromax for his chronic cough. Patient will be discharged. [TC] ED Course User Index [MK] Shay Luna MD [TC] Angelica Tinsley DO Clinical Impressions as of 08/10/242324 Dyspnea, unspecified type Chronic cough Discharge 1. Dyspnea, unspecified type CT Angio Chest wo and/or w Contrast CT Angio Chest wo and/or w Contrast 2. Chronic cough Procedures [facility] * Tomas Pretty RN - 08/10/2024 11:36 AM EDT Patient presents with increased shortness of breath, states followed by pulmonology. documented in this encounter Plan of Treatment Upcoming Encounters Date Type Department Care Team (Late st Contact Info) Description 08/14/2024 12:30 PM EDT Hospital Encounter [facility] Endoscopy [address] [place] [phone] Deepti Hill MD [address] [address] 08/25/2024 8:30 AM EDT Office Visit Pulmonolgy - [place] [address] [phone] Elissa Mccauley NP [address] [address] 10/07/2024 9:30 AM EDT Office Visit Adult Medicine [address] [phone] Saurav Raines PA [address] [place] [address] documented as of this encounter Procedures Procedure Name Priority Date/Time Associated Diagnosis Comments CT ANGIO CHEST WO AND/OR W CONTRAST STAT 08/10/2024 5:11 PM EDT Dyspnea, unspecified type CT HEAD WO CONTRAST STAT 08/10/2024 5 :11 PM EDT POCT GLUCOSE BLOOD Routine 08/10/2024 4: 01 PM EDT TROPONIN I HIGH SENSITIVITY STAT 08/10/2024 1:38 PM EDT ECG 12-LEAD STAT 08/10/2024 1:27 PM EDT RESPIRATORY VIRUS PANEL MOLECULAR STUDY STAT 08/10/2024 11:43 AM EDT TROPONIN I HIGH SENSITIVITY STAT 08/10/2024 11:43 AM EDT CBC WITH AUTO DIFFERENTIAL STAT 08/10/2024 11:43 AM EDT CBC AND DIFFERENTIAL STAT 08/10/2024 11:43 AM EDT B-TYPE NATRIURETIC PEPTIDE STAT 08/10/2024 11:43 AM EDT MAGNESIUM STAT 08/10/2024 11:43 AM EDT LIPASE STAT 08/10/2024 11:43 AM EDT COMPREHENSIVE METABOLIC PANEL STAT 08/10/2024 11:43 AM EDT ECG 12-LEAD STAT 08/10/2024 11:34 AM EDT documented in this encounter Results * CT Head wo Contrast (08/10/2024 5:11 PM EDT) Anatomical Region Laterality Modality Head and Neck Computed Tomogra phy 08/10/2024 5:36 PM EDT Impressions 08/10/2024 5:36 PM EDT 1. No acute intracranial findings. 2. Pansinus inflammatory disease. This document has been electronically signed by: Inna Rubio MD on 08/10/2024 17:36:28 Narrative 08/10/2024 5:36 PM EDT INDICATION: Headache, classic migraine CT head without contrast Comparison: None Findings: No intra-axial mass, midline shift, hydrocephalus, or acute hemorrhage. No significant atrophy-like change or white matter disease. Atherosclerotic vascular disease distally aspect left vertebral artery. Opacification in the sphenoid sinuses, ethmoid air cells and frontal sinuses air-fluid levels in bilateral maxillary sinuses. Bilateral mastoid air cells are clear. The orbits are unremarkable. No skull fracture. Procedure Note Inna Rubio MD - 08/10/2024 INDICATION: Headache, classic migraine CT head without contrast Comparison: None Findings: No intra-axial mass, midline shift, hydrocephalus, or acute hemorrhage. No significant atrophy-like change or white matter disease. Atherosclerotic vascular disease distally aspect left vertebral artery. Opacification in the sphenoid sinuses, ethmoid air cells and frontal sinuses air-fluid levels in bilateral maxillary sinuses. Bilateral mastoid air cells are clear. The orbits are unremarkable. No skull fracture. IMPRESSION: 1. No acute intracranial findings. 2. Pansinus inflammatory disease. This document has been electronically signed by: Inna Rubio MD on 08/10/2024 17:36:28 Shay Luna MD IMG CT PROCEDURES Final Result * CT Angio Chest wo and/or w Contrast (08/10/2024 5:11 PM EDT) Anatomical Region Laterality Modality Body Computed Tomogra phy 08/10/2024 5:41 PM EDT Impressions 08/10/2024 5:41 PM EDT 1. No pulmonary emboli. This document has been electronically signed by: Inna Rubio MD on 08/10/2024 17:41:08 Narrative 08/10/2024 5:41 PM EDT INDICATION: PE suspected, high prob CT angiography chest with contrast. 3D Postprocessing. Comparison: None Findings: The heart is normal size. RV/LV ratio is normal. The thoracic aorta is normal caliber. No pulmonary artery filling defects. The visualized thyroid and mediastinum are unremarkable. No consolidation or effusion. Bilateral mild dependent atelectasis. The upper abdomen demonstrates no acute process. The bones are intact. Procedure Note Inna Rubio MD - 08/10/2024 INDICATION: PE suspected, high prob CT angiography chest with contrast. 3D Postprocessing. Comparison: None Findings: The heart is normal size. RV/LV ratio is normal. The thoracic aorta is normal caliber. No pulmonary artery filling defects. The visualized thyroid and mediastinum are unremarkable. No consolidation or effusion. Bilateral mild dependent atelectasis. The upper abdomen demonstrates no acute process. The bones are intact. IMPRESSION: 1. No pulmonary emboli. This document has been electronically signed by: Inna Rubio MD on 08/10/2024 17:41:08 Shay Luna MD IMG CT PROCEDURES Final Result * (ABNORMAL) POCT Glucose, blood (08/10/2024 4:01 PM EDT) [facility] Glucose POCT 218(H) 70 - 100 mg/dL 08/10/2024 4:07 PM EDT [facility] Blood Capillary blood specimen / Unknown 08/10/2024 4:01 PM EDT 08/10/2024 4:08 PM EDT Angelica Tinsley DO LAB POINT OF CARE TEST DOCKED DEVICE UNSOLICITED RESULTS Final Result [facility]) [facility] [address] [place] [address], [place] [phone] * Troponin I high sensitivity (08/10/2024 1:38 PM EDT) [facility] High Sensitivity Troponin I 3 <=79 ng/L LAB CHEMISTRY METHOD 08/10/2024 2:15 PM EDT [facility] Blood Venous blood specimen / Unknown Venipuncture / Unknown 08/10/2024 1:38 PM EDT 08/10/2024 1:48 PM EDT Narrative [facility] - 08/10/2024 2:15 PM EDT High levels of biotin in samples may falsely decrease hsTroponin values. ??Use caution when interpreting hsTroponin results in patients taking biotin who exhibit renal impairment (eGFR <60) or in patients taking more than 20 mg/day of biotin. us Shay Luna MD LAB BLOOD ORDERABLES Final Resu lt Performing Organization Address [facility]/ZIP Co de Phone Number [facility] [address] [place] [address], [place] [phone] * ECG 12 lead (08/10/2024 1:27 PM EDT) Pathologist [facility] Ventricular Rate ECG 85 BPM GEMUSE Atrial Rate 85 BPM GEMUSE P-R Interval 152 ms GEMUSE QRS Duration 92 ms GEMUSE Q-T Interval 352 ms GEMUSE QTc 418 ms GEMUSE P Wave Beebe 38 degrees GEMUSE R Beebe -23 degrees GEMUSE T Beebe 17 degrees GEMUSE ECG Interpretation Normal sinus rhythm Normal ECG When compared with ECG of 10-AUG-2024 11:34, (unconfirmed) No significant change was found Confirmed by Mitch SANCHEZ JOHN ([id number]) on 08/10/2024 7:55:50 PM GEMUSE 08/10/2024 1:27 PM EDT 08/10/2024 7:55 PM EDT us Shay Luna MD ECG ORDERABLES Final Result Performing Organization Address [facility]/ZIP Co de Phone Number GEMUSE * Respiratory virus panel molecular study (08/10/2024 11:43 AM EDT) Pathologist [facility] Adenovirus Detection by PCR Not Detected Not Detected LAB MICROBIOLOGY METHOD 08/10/2024 1:15 PM EDT [facility] Influenza A PCR Not Detected Not Detected LAB MICROBIOLOGY METHOD 08/10/2024 1:15 PM EDT [facility] Influenza B PCR Not Detected Not Detected LAB MICROBIOLOGY METHOD 08/10/2024 1:15 PM EDT [facility] Coronavirus 229E Not Detected Not Detected LAB MICROBIOLOGY METHOD 08/10/2024 1:15 PM EDT [facility] Coronavirus HKU1 Not Detected Not Detected LAB MICROBIOLOGY METHOD 08/10/2024 1:15 PM EDT [facility] Coronavirus OC43 Not Detected Not Detected LAB MICROBIOLOGY METHOD 08/10/2024 1:15 PM EDT [facility] Coronavirus NL63 Not Detected Not Detected LAB MICROBIOLOGY METHOD 08/10/2024 1:15 PM EDT [facility] Parainfluenza Virus 1 Not Detected Not Detected LAB MICROBIOLOGY METHOD 08/10/2024 1:15 PM EDT [facility] Parainfluenza Virus 2 Not Detected Not Detected LAB MICROBIOLOGY METHOD 08/10/2024 1:15 PM EDT [facility] Parainfluenza Virus 3 Not Detected Not Detected LAB MICROBIOLOGY METHOD 08/10/2024 1:15 PM EDT [facility] Parainfluenza Virus 4 Not Detected Not Detected LAB MICROBIOLOGY METHOD 08/10/2024 1:15 PM EDT [facility] RSV PCR Not Detected Not Detected LAB MICROBIOLOGY METHOD 08/10/2024 1:15 PM EDT [facility] Human Metapneumovirus A and B Not Detected Not Detected LAB MICROBIOLOGY METHOD 08/10/2024 1:15 PM EDT [facility] Rhinovirus/Entero virus Not Detected Not Detected LAB MICROBIOLOGY METHOD 08/10/2024 1:15 PM EDT [facility] Bordetella pertussis Not Detected Not Detected LAB MICROBIOLOGY METHOD 08/10/2024 1:15 PM EDT [facility] Bordetella parapertussis Not Detected Not Detected LAB MICROBIOLOGY METHOD 08/10/2024 1:15 PM EDT [facility] Mycoplasma pneumo by PCR Not Detected Not Detected LAB MICROBIOLOGY METHOD 08/10/2024 1:15 PM EDT [facility] Chlamydia pneumoniae Not Detected Not Detected LAB MICROBIOLOGY METHOD 08/10/2024 1:15 PM EDT [facility] SARS COV-2 Not Detected Not Detected LAB MICROBIOLOGY METHOD 08/10/2024 1:15 PM EDT [facility] Swab Both anterior nares / Unknown Non-blood Collection / Unknown 08/10/2024 11:43 AM EDT 08/10/2024 12:18 PM EDT Narrative [facility] - 08/10/2024 1:15 PM EDT Testing was performed using the [employer] Respiratory Pathogen PCR Assay. All results must be correlated with the clinical findings. Results should not be used as the sole basis for diagnosis. False Negative results may occur from the presence of sequence variants in the region targeted by the assay or the presence of inhibitors. Results may be affected by concurrent antiviral/antimicrobial therapy or levels of organisms that are below the limit of detection. Shay Luna MD LAB MICROBIOLOGY - GENERAL ORDBillie BARR Final Result [facility] [address] [place] [address], * (ABNORMAL) CBC auto differential (08/10/2024 11:43 AM EDT) WBC 10.4 4.8 - 10.8 K/mcL LAB HEMETOLOGY METHOD 08/10/2024 12:43 PM EDT [facility] RBC 5.20 4.50 - 5.50 M/mcL LAB HEMETOLOGY METHOD 08/10/2024 12:43 PM EDT [facility] Hemoglobin 15.3 13.5 - 17.5 g/dL LAB HEMETOLOGY METHOD 08/10/2024 12:43 PM [facility] Hematocrit 44.2 42.0 - 54.0 % LAB HEMETOLOGY METHOD 08/10/2024 12:43 PM [facility] MCV 85.5 79.0 - 98.0 FL LAB HEMETOLOGY METHOD 08/10/2024 12:43 PM [facility] MCH 29.6 27.0 - 32.0 pcg LAB HEMETOLOGY METHOD 08/10/2024 12:43 PM [facility] MCHC 34.6 32.0 - 37.0 g/dL LAB HEMETOLOGY METHOD 08/10/2024 12:43 PM [facility] RDW 11.6 11.0 - 15.0 % LAB HEMETOLOGY METHOD 08/10/2024 12:43 PM [facility] Platelets 241 130 - 400 K/mcL LAB HEMETOLOGY METHOD 08/10/2024 12:43 PM [facility] MPV 10.9 7.0 - 11.0 FL LAB HEMETOLOGY METHOD 08/10/2024 12:43 PM [facility] NRBC 0.0 <1.0 % LAB HEMETOLOGY METHOD 08/10/2024 12:43 PM [facility] NRBC Absolute 0.00 <0.10 K/mcL LAB HEMETOLOGY METHOD 08/10/2024 12:43 PM [facility] Neutrophils Relative 77.6 % LAB HEMETOLOGY METHOD 08/10/2024 12:43 PM [facility] Lymphocytes Relative 11.8 % LAB HEMETOLOGY METHOD 08/10/2024 12:43 PM [facility] Monocytes Relative 9.4 % LAB HEMETOLOGY METHOD 08/10/2024 12:43 PM EDT [facility] Eosinophils Relative 0.5 % LAB HEMETOLOGY METHOD 08/10/2024 12:43 PM EDT [facility] Basophils Relative 0.3 % LAB HEMETOLOGY METHOD 08/10/2024 12:43 PM EDT [facility] Immature Granulocytes Relative 0.4 % LAB HEMETOLOGY METHOD 08/10/2024 12:43 PM EDT [facility] Neutrophils Absolute 8.06(H) 1.50 - 7.00 K/mcL LAB HEMETOLOGY METHOD 08/10/2024 12:43 PM EDT [facility] Lymphocytes Absolute 1.22 1.00 - 5.00 K/mcL LAB HEMETOLOGY METHOD 08/10/2024 12:43 PM EDT [facility] Monocytes Absolute 0.98 0.20 - 1.00 K/mcL LAB HEMETOLOGY METHOD 08/10/2024 12:43 PM EDT [facility] Eosinophils Absolute 0.05 0.00 - 0.50 K/mcL LAB HEMETOLOGY METHOD 08/10/2024 12:43 PM EDT [facility] Basophils Absolute 0.03 0.00 - 0.20 K/mcL LAB HEMETOLOGY METHOD 08/10/2024 12:43 PM EDT [facility] Immature Granulocytes Absolute 0.04(H) 0.00 - 0.03 K/mcL LAB HEMETOLOGY METHOD 08/10/2024 12:43 PM EDT [facility] Blood Venous blood specimen / Unknown Venipuncture / Unknown 08/10/2024 11:43 AM EDT 08/10/2024 12:17 PM EDT us Shay Luna MD LAB BLOOD ORDERABLES Final Resu lt [facility] [address] [place] [address], [place] [phone] * B-type natriuretic peptide (08/10/2024 11:43 AM EDT) Pathologist [facility] BNP 4 <=100 pcg/mL LAB CHEMISTRY METHOD 08/10/2024 1:08 PM EDT [facility] Blood Venous blood specimen / Unknown Venipuncture / Unknown 08/10/2024 11:43 AM EDT 08/10/2024 12:17 PM EDT us Shay Luna MD LAB BLOOD ORDERABLES Final Resu lt [facility] [address] [place] [address], [place] [phone] * Magnesium (08/10/2024 11:43 AM EDT) Pathologist [facility] Magnesium 2.1 1.9 - 2.6 mg/dL LAB CHEMISTRY METHOD 08/10/2024 1:07 PM EDT [facility] Comment:Hemolysis present Blood Venous blood specimen / Unknown Venipuncture / Unknown 08/10/2024 11:43 AM EDT 08/10/2024 12:17 PM EDT us Shay Luna MD LAB BLOOD ORDERABLES Final Resu lt [facility] [address] [place] [address], [place] [phone] * Lipase (08/10/2024 11:43 AM EDT) Pathologist [facility] Lipase 50 13 - 75 unit/L LAB CHEMISTRY METHOD 08/10/2024 1:07 PM EDT [facility] Blood Venous blood specimen / Unknown Venipuncture / Unknown 08/10/2024 11:43 AM EDT 08/10/2024 12:17 PM EDT us Shay Luna MD LAB BLOOD ORDERABLES Final Resu lt [facility] [address] [place] [address], * (ABNORMAL) Comprehensive metabolic panel (08/10/2024 11:43 AM EDT) Sodium 133 133 - 145 mmol/L LAB CHEMISTRY METHOD 08/10/2024 1:07 PM [facility] Potassium 4.3 3.5 - 5.5 mmol/L LAB CHEMISTRY METHOD 08/10/2024 1:07 PM [facility] Comment:Hemolysis present Chloride 99 96 - 110 mmol/L LAB CHEMISTRY METHOD 08/10/2024 1:07 PM [facility] CO2 23 21 - 32 mmol/L LAB CHEMISTRY METHOD 08/10/2024 1:07 PM [facility] Anion Gap 11 3 - 11 LAB CHEMISTRY METHOD 08/10/2024 1:07 PM [facility] Glucose 303(H) 70 - 100 mg/dL LAB CHEMISTRY METHOD 08/10/2024 1:07 PM [facility] BUN 15 5 - 25 mg/dL LAB CHEMISTRY METHOD 08/10/2024 1:07 PM [facility] Creatinine 0.82 0.70 - 1.30 mg/dL LAB CHEMISTRY METHOD 08/10/2024 1:07 PM [facility] eGFR 110 >=60 mL/min/1. 73m2 LAB CHEMISTRY METHOD 08/10/2024 1:07 PM [facility] Comment:Calculation based on the Chronic Kidney Disease Epidemiology Collaboration (CKD-EPI) equation refit without adjustment for race. BUN/Creatinine Ratio 18.3 LAB CHEMISTRY METHOD 08/10/2024 1:07 PM [facility] Calcium 9.6 8.5 - 10.5 mg/dL LAB CHEMISTRY METHOD 08/10/2024 1:07 PM EDT [facility] AST (SGOT) 18 10 - 42 unit/L LAB CHEMISTRY METHOD 08/10/2024 1:07 PM EDT [facility] Comment:Hemolysis present ALT (SGPT) 27 10 - 60 unit/L LAB CHEMISTRY METHOD 08/10/2024 1:07 PM EDT [facility] Alkaline Phosphatase 88 42 - 121 unit/L LAB CHEMISTRY METHOD 08/10/2024 1:07 PM EDT [facility] Total Protein 7.4 6.0 - 8.0 g/dL LAB CHEMISTRY METHOD 08/10/2024 1:07 PM EDT [facility] Albumin 4.2 3.2 - 5.0 g/dL LAB CHEMISTRY METHOD 08/10/2024 1:07 PM [facility] Total Bilirubin 1.2 0.0 - 1.4 mg/dL LAB CHEMISTRY METHOD 08/10/2024 1:07 PM T [facility] Blood Venous blood specimen / Unknown Venipuncture / Unknown 08/10/2024 11:43 AM EDT 08/10/2024 12:17 PM EDT us Shay Luna MD LAB BLOOD ORDERABLES Final Resu lt [facility] [address] [place] [address], * Troponin I high sensitivity (08/10/2024 11:43 AM EDT) High Sensitivity Troponin I 4 <=79 ng/L LAB CHEMISTRY METHOD 08/10/2024 12:48 PM EDT [facility] Blood Venous blood specimen / Unknown Venipuncture / Unknown 08/10/2024 11:43 AM EDT 08/10/2024 12:17 PM EDT Narrative [facility] - 08/10/2024 12:48 PM EDT High levels of biotin in samples may falsely decrease hsTroponin values. ??Use caution when interpreting hsTroponin results in patients taking biotin who exhibit renal impairment (eGFR <60) or in patients taking more than 20 mg/day of biotin. us Shay Luna MD LAB BLOOD ORDERABLES Final Resu lt Performing Organization Address [facility] de Phone Number [facility]) [facility] [address] [place] [address], [place] [phone] * ECG 12 lead (08/10/2024 11:34 AM EDT) Ventricular Rate ECG 85 BPM GEMUSE Atrial Rate 85 BPM GEMUSE P-R Interval 152 ms GEMUSE QRS Duration 90 ms GEMUSE Q-T Interval 360 ms GEMUSE QTc 428 ms GEMUSE P Wave Beebe 50 degrees GEMUSE R Beebe -17 degrees GEMUSE T Beebe 25 degrees GEMUSE ECG Interpretation Normal sinus rhythm Normal ECG No previous ECGs available Confirmed by Mitch SANCHEZ JOHN ([id number]) on 08/10/2024 7:38:55 PM GEMUSE 08/10/2024 11:3 4 AM EDT 08/10/2024 7:38 PM EDT us Shay Luna MD ECG ORDERABLES Final Result Performing Organization Address [facility] de Phone Number GEMUSE documented in this encounter Visit Diagnoses Diagnosis Dyspnea, unspecified type- Primary Chronic cough Cough documented in this encounter Administered Medications Inactive Administered Medications - up to 3 most recent administrations Medication Order MAR Action Action Date Dose Rate Site acetaminophen (TYLENOL) tablet 1,000 mg 1,000 mg, oral, Once, On Sat08/10/24 at 1532, For 1 dose Given 08/10/2024 3:57 PM EDT 1,000 mg azithromycin (ZITHROMAX) tablet 500 mg 500 mg, oral, Once, On Sat08/10/24 at 1525, For 1 dose, Indication: Pneumonia, Community Acquired Given 08/10/2024 3:56 PM EDT 500 mg kypaejigve-jvcojuafpxads-tutzgat e (FIORICET, ESGIC) 50-325-40 mg per tablet 1 tablet 1 tablet, oral, Once, On Sat08/10/24 at 1741, For 1 dose Given 08/10/2024 5:49 PM EDT 1 tablet iopamidoL (ISOVUE-370) 370 mg iodine /mL (76 %) injection 90 mL 90 mL, intravenous, Once in imaging, Starting on Sat08/10/24 at 1703, For 1 dose Given 08/10/2024 5:06 PM EDT 90 mL ketorolac (TORADOL) injection 15 mg 15 mg, intravenous, Once, On Sat08/10/24 at 1741, For 1 dose Given 08/10/2024 5:50 PM EDT 15 mg sodium chloride 0.9 % flush 10 mL 10 mL, intravenous, Once, On Sat08/10/24 at 1704, For 1 dose Given 08/10/2024 5:06 PM EDT 10 mL documented in this encounter Active and Recently Administered Medications Times are shown in EDT. Scheduled Medication Order 08/08/2024 08/09/2024 08/10/2024 acetaminophen (TYLENOL) tablet 1,000 mg (COMPLETED) 1,000 mg, oral, Once, On Sat08/10/24 at 1532, For 1 dose 1557 (Given - Provid er: Ada Tinoco RN) azithromycin (ZITHROMAX) tablet 500 mg (COMPLETED) 500 mg, oral, Once, On Sat08/10/24 at 1525, For 1 dose, Indication: Pneumonia, Community Acquired 1556 (Given - Provid er: Ada Tinoco RN) zjxdztxwqq-xjsphtfthaazd-lvfzbms e (FIORICET, ESGIC) 50-325-40 mg per tablet 1 tablet (COMPLETED) 1 tablet, oral, Once, On Sat08/10/24 at 1741, For 1 dose 1749 (Given - Provid er: Ada Tinoco RN) iopamidoL (ISOVUE-370) 370 mg iodine /mL (76 %) injection 90 mL (COMPLETED) 90 mL, intravenous, Once in imaging, Starting on Sat08/10/24 at 1703, For 1 dose 1706 (Given - Provid er: Juliana Lizarraga) ketorolac (TORADOL) injection 15 mg (COMPLETED) 15 mg, intravenous, Once, On Sat08/10/24 at 1741, For 1 dose 1750 (Given - Provid er: Ada Tinoco RN) sodium chloride 0.9 % flush 10 mL (COMPLETED) 10 mL, intravenous, Once, On Sat08/10/24 at 1704, For 1 dose 1706 (Given - Provid er: Juliana Lizarraga) documented in this encounter Orders Lab Orders Without Results Count Last Ordered D ate First Ordered Date POCT GLUCOSE, BLOOD 1 08/10/2024 EKG Orders Without Results Count Last Ordered D ate First Ordered Date ECG 12-LEAD 1 08/10/2024 documented in this encounter Additional Health Concerns Infection Onset Date Last Indicated Resolved Time Respiratory Rule-Out 08/10/2024 08/10/2024 025 1:15 PM EDT COVID-19 Rule-Out 08/10/2024 08/10/2024 08/10/2024 1:15 PM EDT documented as of this encounter Care Teams Journalists And Other Writers Relationship Specialty Start Date End Date Lynn Jackson MD [address] [place] [id number] PCP - General Internal Medicine 04/27/24 documented as of this encounter
--- OUTSIDE RECORDS SUMMARY | 2024-08-11 08:01 | XMS_ITS | Clinical Summary ---
Author Organization Patient Business Ser [facility] Address [address] [place] [address] Care Team Providers Care Dealmaker Name Role Phone Lynn Jackson MD Primary Care Provider [phone] Allergies No known active allergies Medications FREESTYLE LANCETS MISC Check fasting gluocse once daily 12/10/19 21 Active blood sugar diagnostic (FreeStyle Lite Strips) test strip Check fasting glucose once daily 12/10/19 21 Active blood-glucose meter kit To test fasting sugar daily 12/10/19 21 Active fluticasone propionate (FLONASE) 50 mcg/actuation nasal spray 09/18/19 24 Active montelukast (SINGULAIR) 10 mg tabletIndication s:Moderate persistent asthma without complication,Chr onic cough Take 1 tablet (10 mg total) by mouth at bedtime. 30 each 2 06/26/19 25 026 Active budesonide-formo teroL (Symbicort) 160-4.5 mcg/actuation inhalerIndicatio ns:Moderate persistent asthma without complication Inhale 2 puffs by mouth 2 (two) times a day. Rinse mouth with water after use to reduce aftertaste and incidence of candidiasis. Do not swallow. 30.6 g 1 06/26/19 25 026 Active albuterol HFA (PROAIR HFA ; PROVENTIL HFA ; VENTOLIN HFA) 90 mcg/actuation inhalerIndicatio ns:Moderate persistent asthma without complication,Mod erate persistent asthma with acute exacerbation INHALE 2 PUFFS INTO LUNGS EVERY 6 HOURS IF NEEDED FOR WHEEZING OR SHORTNESS OF BREATH (COUGH, CHEST) 18 each 2 07/03/19 25 Active metFORMIN XR (GLUCOPHAGE-XR) 500 mg 24 hr tablet Take 4 tablets (2,000 mg total) by mouth 1 (one) time each day. Do not crush, chew, or split. 360 tablet 1 06/30/19 25 Active atorvastatin (LIPITOR) 10 mg tablet Take 1 tablet (10 mg total) by mouth 1 (one) time each day. 90 tablet 1 06/30/19 25 Active dulaglutide (Trulicity) 0.75 mg/0.5 mL pen injector injection Inject 0.5 mL (0.75 mg total) under the skin 1 (one) time per week. 2 mL 2 06/30/19 25 Active loratadine (CLARITIN) 10 mg tabletIndication s:Chronic cough,Moderate persistent asthma with acute exacerbation Take 1 tablet (10 mg total) by mouth 1 (one) time each day. 90 each 3 07/16/19 25 026 Active albuterol 2.5 mg /3 mL (0.083 %) nebulizer solutionIndicati ons:Chronic cough,Moderate persistent asthma with acute exacerbation,Acu te bronchitis, unspecified organism Take 3 mL (2.5 mg total) by nebulization every 6 (six) hours if needed for wheezing. 300 mL 1 07/16/19 25 026 Active omeprazole (PriLOSEC) [address] capsuleIndicatio ns:Chronic cough,Gastroesop hageal reflux disease, unspecified whether esophagitis present Take 1 capsule (40 mg total) by mouth 1 (one) time each day. Do not crush or chew. 30 each 07/28/19 25 026 Active loratadine (CLARITIN) 10 mg tablet Take 1 tablet (10 mg total) by mouth 1 (one) time each day. 05/24/19 24 025 Discontinu ed(Reorder ) predniSONE (DELTASONE) 10 mg tabletIndication s:Chronic cough,Moderate persistent asthma with acute exacerbation Take 4 tablets (40 mg total) by mouth 1 (one) time each day for 3 days, THEN 3 tablets (30 mg total) 1 (one) time each day for 3 days, THEN 2 tablets (20 mg total) 1 (one) time each day for 3 days, THEN 1 tablet (10 mg total) 1 (one) time each day for 3 days. 30 each 07/16/19 25 025 Discontinu ed(Therapy completed) guaiFENesin-code ine (ROBITUSSIN-AC) 100-10 mg/5 mL syrupIndications :Chronic cough Take 5 mL by mouth every 8 (eight) hours if needed for cough for up to 10 days. Max Daily Amount: 15 mL 150 mL 07/29/19 25 025 Hospital, Clinic, or Other Facility Administered Medication Ordered Dose Route Frequency Start Date End Date Status albuterol 2.5 mg /3 mL (0.083 %) nebulizer solution 2.5 mgIndications:Moderat e persistent asthma with acute exacerbation,Acute bronchitis, unspecified organism 2.5 mg nebu Once 07/15/2024 07/27/2024 Disc ontinued Active Problems Problem Noted Date Diagnosed Date Type 2 diabetes mellitus wit h retinopathy, without long-term current use of insulin ([facility] V24, [facility] V28) 06/29/2024 Essential hypertension 06/21/2021 Chest pain 06/19/2021 Hyperglycemia due to diabete s mellitus ([facility] V24, [facility] V28) 05/10/2021 Known medical problems 05/04/2019 Overview (04/08/2024): 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 Left inguinal hernia 05/05/2014 Elevated blood pressure reading 01/28/2014 Hyperlipidemia with target LDL less than 100 Overview (04/08/2024): IMO update Chronic knee pain 11/07/2013 Umbilical hernia 07/15/2012 Encounters Date Type Department Care Team Description 08/10/2024 1:08 PM EDT - 08/10/2024 6:15 PM EDT Emergency [facility] Emergency [address] [place] [id number] Shay Luna MD Cheng, Ting Ho Danny, Dyspnea, unspecified type (Primary Dx); Chronic cough Discharge Disposition: Home or Self Care 07/29/2024 Telephone Pulmonolgy - [place] [address] [phone] Arron Lucio MA bronchoscopy [facility] [address] [phone] Elissa Mccauley NP Medication Problem 07/27/2024 3:20 PM EDT [facility] [address] [phone] Elissa Mccauley NP Chronic cough (Primary Dx); Gastroesophageal reflux disease, unspecified whether esophagitis present 07/16/2024 8:23 AM EDT - 07/16/2024 11:59 PM EDT Hospital Encounter [address] [phone] Chronic cough; Moderate persistent asthma with acute exacerbation Discharge Disposition: Home or Self Care [facility] [address] [phone] Lidia Mcneil MA DME-nebulizer machine 07/15/2024 3:20 PM EDT Office Visit Pul[address] [phone] Elissa Mccauley NP Chronic cough (Primary Dx); Moderate persistent asthma with acute exacerbation; Acute bronchitis, unspecified organism [facility] [address] [phone] Elissa Mccauley NP Cough 06/29/2024 8:00 AM EDT Office Visit Adult Medicine [address] [phone] Saurav Raines PA Hyperglycemia due to diabetes mellitus (CMS/HCC V24, CMS/HCC V28) (Primary Dx); Essential hypertension; Hyperlipidemia with target LDL less than 100 06/25/2024 8:30 AM EDT [facility] [address] [phone] Elissa Mccauley, BELEM Moderate persistent asthma without complication (Primary Dx); Chronic cough; Overweight (BMI 25.0-29.9) from Last 3 Months Immunizations Name Administration Dates Next Due Influenza Quadravalent, MDCK , 0.5ml, preservative free (Flucelvax) 6mo and older 01/14/2023,12/18/2019 Moderna SARS-CoV-2 COVID-19, mRNA, LNP-S, preservative free 05/11/2020,04/15/2020 Pneumococcal polysaccharide 23 valent (Pneumovax 23) 2yo and older 11/06/2021 Tdap Tetanus diptheria acell ular pertussis (Boostrix; Adacel) 7yo and older 07/08/2013,07/15/2012 Surgical History Surgery Date Site/Laterality Comments HERNIA REPAIR PROCEDURE: REPAIR INGUINAL HERNIA; COMMENT: 2004 Medical History Medical History Date Comments Type 2 diabetes with ophthal rachel manifestation ([facility] V24, [facility] V28) DX:Type 2 nael betes with ophthalmic manifestation (HCC) Diabetic retinopathy ([facility] V24, [facility] V28) DX:Diabetic retinopathy (HCC ) Hyperlipidemia DX:Hyperlipidemi a Family History Medical History Relation Name Comments Heart attack Father Diabetes Maternal Grandfather Diabetes Maternal Grandmother APRIL disease Maternal Grandmother Relation Name Status Comments Father Maternal Grandfather Maternal Grandmother Social History Tobacco Use Types Packs/Day Years Used Date Smoking Tobacco: Never Smokeless Tobacco: Never Quit: 01/23/2002 Alcohol Use Standard Drinks/Week Comments No 0 (1 standard drink = 0.6 oz pur e alcohol) Sex and Gender Information Value Date Recorded Sex Assigned at Not on file Legal Sex Male 10:41 AM EST Gender Identity Not on file Sexual Orientation Not on file Obstetrics History Last Filed Vital Signs Vital Sign Reading [...] Mass Index 26.54 08/10/2024 11:37 AM EDT Plan of Treatment Upcoming Encounters Date Type Department Care Team (Late st Contact Info) Description 08/14/2024 12:30 PM EDT Hospital Encounter [facility] Endoscopy [address] [place] [phone] Deepti Hill MD [address] [address] 08/25/2024 8:30 AM EDT Office Visit Pulmonolgy - [place] [address] [phone] Elissa Mccauley NP [address] [address] 10/07/2024 9:30 AM EDT Office Visit Adult Medicine [address] [phone] Saurav Raines PA [address] [place] [phone] Health Maintenance Due Date Last Done Comments Diabetes: Annual Foot Exam 1988 Diabetes: Annual Retina Eye Exam 1988 Hepatitis B Vaccines (1 of 3 - 19+ 3-dose series) 1997 Colorectal Cancer Screening: Colonoscopy 03/05/2022 Depression Screening 03/05/2022 HIV Screening 03/05/2022 Hepatitis C Screening 03/05/2022 Social Influencers of Health Screening 03/05/2022 Pneumococcal Vaccine: Pediatrics (0 to 5 Years) and At-Risk Patients (6 to 64 Years) (2 of 2 - PCV) 11/06/2022 11/06/2021 DTaP,Tdap,and Td Vaccines (3 - Td or Tdap) 07/09/2023 07/08/2013, 07/15/2012 COVID-19 Vaccine (2023-2 5 season) 2023 05/11/2020, 04/15/2020 Influenza Vaccine (Season Ended) 2024 01/14/2023, 12/18/2019 Diabetes: Blood Sugar Contro l Test (HGBA1C) 12/16/2024 06/15/2024, 04/22/2023 Diabetes: Annual Urine Albumin-Creatinine Ratio (uACR) 06/15/2025 06/15/2024, 01/08/2023 Diabetes: Annual GFR (Glomerular Filtration Rate) 08/10/2025 08/10/2024, 06/15/2024, 04/22/2023 Hypertension/CHF/CAD Annual BMP Blood Test 08/10/2025 08/10/2024, 06/15/2024, 04/22/2023 Cholesterol Screening (Lipid Panel) 06/15/2029 06/15/2024, 04/22/2023 HIB Vaccines Aged Out No longer eligi ble based on patient's age to complete this topic HPV Vaccines Aged Out No longer eligi ble based on patient's age to complete this topic Hepatitis A Vaccines Aged Out No long er eligible based on patient's age to complete this topic IPV Vaccines Aged Out No longer eligi ble based on patient's age to complete this topic MMR Vaccines Aged Out No longer eligi ble based on patient's age to complete this topic Meningococcal ACWY Vaccine Aged Out N o longer eligible based on patient's age to complete this topic Meningococcal B Vaccine Aged Out No l onger eligible based on patient's age to complete this topic RSV Immunization Patients Under 20 months Aged Out No longer eligible b ased on patient's age to complete this topic Varicella Vaccines Aged Out No longer eligible based on patient's age to complete this topic Procedures Procedure Name Priority Date/Time Associated Diagnosis Comments CT ANGIO CHEST WO AND/OR W CONTRAST STAT 08/10/2024 5:11 PM EDT Dyspnea, unspecified type CT HEAD WO CONTRAST STAT 08/10/2024 5 :11 PM EDT POCT GLUCOSE BLOOD Routine 08/10/2024 4: 01 PM EDT TROPONIN I HIGH SENSITIVITY STAT 08/10/2024 1:38 PM EDT ECG 12-LEAD STAT 08/10/2024 1:27 PM EDT CBC WITH AUTO DIFFERENTIAL STAT 08/10/2024 11:43 AM EDT B-TYPE NATRIURETIC PEPTIDE STAT 08/10/2024 11:43 AM EDT MAGNESIUM STAT 08/10/2024 11:43 AM EDT LIPASE STAT 08/10/2024 11:43 AM EDT COMPREHENSIVE METABOLIC PANEL STAT 08/10/2024 11:43 AM EDT CBC AND DIFFERENTIAL STAT 08/10/2024 11:43 AM EDT TROPONIN I HIGH SENSITIVITY STAT 08/10/2024 11:43 AM EDT RESPIRATORY VIRUS PANEL MOLECULAR STUDY STAT 08/10/2024 11:43 AM EDT ECG 12-LEAD STAT 08/10/2024 11:34 AM EDT XR CHEST 2 VIEWS Routine 07/16/2024 8:31 AM EDT Chronic cough Moderate persistent asthma with acute exacerbation INTERFERON GAMMA INTERPRETATION Routine 07/16/2024 8:21 AM EDT Chest pain INTERFERON GAMMA ANTIGEN 2 Routine 07/16/2024 8:21 AM EDT Chest pain INTERFERON GAMMA ANTIGEN 1 Routine 07/16/2024 8:21 AM EDT Chest pain INTERFERON GAMMA MITOGEN Routine 07/16/2024 8:21 AM EDT Chest pain INTERFERON GAMMA NIL Routine 07/16/2024 8:21 AM EDT Chest pain INTERFERON GAMMA FOR TB, QUALITATIVE Routine 07/16/2024 8:21 AM EDT Chest pain MYCOPLASMA PNEUMONIAE ANTIBODY IGM Routine 07/16/2024 8:21 AM EDT Chest pain POC GLUCOSE Routine 06/29/2024 7:58 AM EDT Hyperglycemia due to diabetes mellitus (CMS/[facility] V24, CMS/[facility] V28) CBC WITH AUTO DIFFERENTIAL Routine 06/15/2024 11:17 AM EDT Moderate persistent asthma without complication CBC AND DIFFERENTIAL Routine 06/15/2024 11:17 AM EDT Moderate persistent asthma without complication ALLERGEN RESPIRATORY PROFILE AREA 1 CT,[place],V T IGE Routine 06/15/2024 11:17 AM EDT Moderate persistent asthma without complication HEMOGLOBIN A1C Routine 06/15/2024 11:17 AM EDT Type 2 diabetes mellitus without complication, without long-term current use of insulin ([facility] V24, CMS/[facility] V28) LIPID PANEL WITH REFLEX TO DIRECT LDL Routine 06/15/2024 11:17 AM EDT Hyperlipidemia with target LDL less than 100 MICROALBUMIN CREATININE URINE RATIO Routine 06/15/2024 11:17 AM EDT Type 2 diabetes mellitus without complication, without long-term current use of insulin (CMS/HCC V24, CMS/HCC V28) COMPREHENSIVE METABOLIC PANEL Routine 06/15/2024 11:17 AM EDT Type 2 diabetes mellitus without complication, without long-term current use of insulin (CMS/HCC V24, CMS/HCC V28) from Last 3 Months Results * CT Angio Chest wo and/or w [...] IMG CT PROCEDURES Final Result * CT Head wo Contrast (08/10/2024 5:11 [...] POCT Glucose, blood (08/10/2024 4:01 PM EDT) [facility] Glucose POCT 218(H) 70 - 100 mg/dL 08/10/2024 4:07 PM EDT [facility] Blood Capillary blood specimen / Unknown 08/10/2024 4:01 PM EDT 08/10/2024 4:08 PM EDT Angelica Vazquez Stepan Laureano DO LAB POINT OF CARE TEST DOCKED DEVICE UNSOLICITED RESULTS Final Result [facility] [address] [place] [address], [place] [phone] * Troponin I high sensitivity (08/10/2024 1:38 PM EDT) Only the most recent of2 resultswithin the time period is included. [facility] High Sensitivity Troponin I 3 <=79 ng/L LAB CHEMISTRY METHOD 08/10/2024 2:15 PM EDT [facility] Blood Venous blood specimen / Unknown Venipuncture / Unknown 08/10/2024 1:38 PM EDT 08/10/2024 1:48 PM EDT Narrative [facility] - 08/10/2024 2:15 PM EDT High levels of biotin in samples may falsely decrease hsTroponin values. ??Use caution when interpreting hsTroponin results in patients taking biotin who exhibit renal impairment (eGFR <60) or in patients taking more than 20 mg/day of biotin. us Shay Luna MD LAB BLOOD ORDERABLES Final Resu lt Performing Organization Address [facility]/ZIP Co de Phone Number [facility] [address] [place] [address], [place] [phone] * ECG 12 lead (08/10/2024 1:27 PM EDT) Only the most recent of2 resultswithin the time period is included. Pathologist [facility] Ventricular Rate ECG 85 BPM GEMUSE Atrial Rate 85 BPM GEMUSE P-R Interval 152 ms GEMUSE QRS Duration 92 ms GEMUSE Q-T Interval 352 ms GEMUSE QTc 418 ms GEMUSE P Wave [place] 38 degrees GEMUSE R [place] -23 degrees GEMUSE T [place] 17 degrees GEMUSE ECG Interpretation Normal sinus rhythm Normal ECG When compared with ECG of 10-AUG-2024 11:34, (unconfirmed) No significant change was found Confirmed by Mitch SANCHEZ JOHN ([id number]) on 08/10/2024 7:55:50 PM GEMUSE 08/10/2024 1:27 PM EDT 08/10/2024 7:55 PM EDT us Shay Luna MD ECG ORDERABLES Final Result Performing Organization Address [facility] Co de Phone Number GEMUSE * Respiratory virus panel molecular study (08/10/2024 11:43 AM EDT) [facility] Adenovirus Detection by PCR Not Detected Not Detected LAB MICROBIOLOGY METHOD 08/10/2024 1:15 PM EDT [facility] Influenza A PCR Not Detected Not Detected LAB MICROBIOLOGY METHOD 08/10/2024 1:15 PM EDT [facility] Influenza B PCR Not Detected Not Detected LAB MICROBIOLOGY METHOD 08/10/2024 1:15 PM EDT [facility] Coronavirus 229E Not Detected Not Detected LAB MICROBIOLOGY METHOD 08/10/2024 1:15 PM EDT [facility] Coronavirus HKU1 Not Detected Not Detected LAB MICROBIOLOGY METHOD 08/10/2024 1:15 PM EDT [facility] Coronavirus OC43 Not Detected Not Detected LAB MICROBIOLOGY METHOD 08/10/2024 1:15 PM EDT [facility] Coronavirus NL63 Not Detected Not Detected LAB MICROBIOLOGY METHOD 08/10/2024 1:15 PM EDT [facility] Parainfluenza Virus 1 Not Detected Not Detected LAB MICROBIOLOGY METHOD 08/10/2024 1:15 PM EDT [facility] Parainfluenza Virus 2 Not Detected Not Detected LAB MICROBIOLOGY METHOD 08/10/2024 1:15 PM EDT [facility] Parainfluenza Virus 3 Not Detected Not Detected LAB MICROBIOLOGY METHOD 08/10/2024 1:15 PM EDT [facility] Parainfluenza Virus 4 Not Detected Not Detected LAB MICROBIOLOGY METHOD 08/10/2024 1:15 PM EDT [facility] RSV PCR Not Detected Not Detected LAB MICROBIOLOGY METHOD 08/10/2024 1:15 PM EDT [facility] Human Metapneumovirus A and B Not Detected Not Detected LAB MICROBIOLOGY METHOD 08/10/2024 1:15 PM EDT [facility] Rhinovirus/Entero virus Not Detected Not Detected LAB MICROBIOLOGY METHOD 08/10/2024 1:15 PM EDT [facility] Bordetella pertussis Not Detected Not Detected LAB MICROBIOLOGY METHOD 08/10/2024 1:15 PM EDT [facility] Bordetella parapertussis Not Detected Not Detected LAB MICROBIOLOGY METHOD 08/10/2024 1:15 PM EDT [facility] Mycoplasma pneumo by PCR Not Detected Not Detected LAB MICROBIOLOGY METHOD 08/10/2024 1:15 PM EDT [facility] Chlamydia pneumoniae Not Detected Not Detected LAB MICROBIOLOGY METHOD 08/10/2024 1:15 PM EDT [facility] SARS COV-2 Not Detected Not Detected LAB MICROBIOLOGY METHOD 08/10/2024 1:15 PM EDT [facility] Swab Both anterior nares / Unknown Non-blood Collection / Unknown 08/10/2024 11:43 AM EDT 08/10/2024 12:18 PM EDT [facility] - 08/10/2024 1:15 PM EDT Testing was performed using the [employer]Available Respiratory Pathogen PCR Assay. All results must [...] that are below the limit of detection. us Shay Luna MD LAB MICROBIOLOGY - GENERAL [facility]Pe[facility] Final Result [facility] [address] [place] [address], [place] [phone] * (ABNORMAL) CBC auto differential (08/10/2024 11:43 AM EDT) Only the most recent of2 resultswithin the time period is included. WBC 10.4 4.8 - 10.8 K/mcL LAB HEMETOLOGY METHOD 08/10/2024 12:43 PM EDT [facility] RBC 5.20 4.50 - 5.50 M/mcL LAB HEMETOLOGY METHOD 08/10/2024 12:43 PM EDT [facility] Hemoglobin 15.3 13.5 - 17.5 g/dL LAB HEMETOLOGY METHOD 08/10/2024 12:43 PM EDT [facility] Hematocrit 44.2 42.0 - 54.0 % LAB HEMETOLOGY METHOD 08/10/2024 12:[facility] MCV 85.5 79.0 - 98.0 FL LAB HEMETOLOGY METHOD 08/10/2024 12:43 PM [facility] MCH 29.6 27.0 - 32.0 pcg LAB HEMETOLOGY METHOD 08/10/2024 12:43 [facility] MCHC 34.6 32.0 - 37.0 g/dL LAB HEMETOLOGY METHOD 08/10/2024 12:43 PM [facility] RDW 11.6 11.0 - 15.0 % LAB HEMETOLOGY METHOD 08/10/2024 12:43 PM [facility] Platelets 241 130 - 400 K/mcL LAB HEMETOLOGY METHOD 08/10/2024 12:43 PM [facility] MPV 10.9 7.0 - 11.0 FL LAB HEMETOLOGY METHOD 08/10/2024 12:43 PM [facility] NRBC 0.0 <1.0 % LAB HEMETOLOGY METHOD 08/10/2024 12:43 PM [facility] NRBC Absolute 0.00 <0.10 K/mcL LAB HEMETOLOGY METHOD 08/10/2024 12:43 PM [facility] Neutrophils Relative 77.6 % LAB HEMETOLOGY METHOD 08/10/2024 12:43 PM [facility] Lymphocytes Relative 11.8 % LAB HEMETOLOGY METHOD 08/10/2024 12:43 PM [facility] Monocytes Relative 9.4 % LAB HEMETOLOGY METHOD 08/10/2024 12:43 PM [facility] Eosinophils Relative 0.5 % LAB HEMETOLOGY METHOD 08/10/2024 12:43 PM EDT [facility] Basophils Relative 0.3 % LAB HEMETOLOGY METHOD 08/10/2024 12:43 PM EDT [facility] Immature Granulocytes Relative 0.4 % LAB HEMETOLOGY METHOD 08/10/2024 12:43 PM EDT [facility] Neutrophils Absolute 8.06(H) 1.50 - 7.00 K/mcL LAB HEMETOLOGY METHOD 08/10/2024 12:43 PM EDT [facility] Lymphocytes Absolute 1.22 1.00 - 5.00 K/mcL LAB HEMETOLOGY METHOD 08/10/2024 12:43 PM EDT [facility] Monocytes Absolute 0.98 0.20 - 1.00 K/mcL LAB HEMETOLOGY METHOD 08/10/2024 12:43 PM EDT [facility] Eosinophils Absolute 0.05 0.00 - 0.50 K/mcL LAB HEMETOLOGY METHOD 08/10/2024 12:43 PM EDT [facility] Basophils Absolute 0.03 0.00 - 0.20 K/mcL LAB HEMETOLOGY METHOD 08/10/2024 12:43 PM EDT [facility] Immature Granulocytes Absolute 0.04(H) 0.00 - 0.03 K/mcL LAB HEMETOLOGY METHOD 08/10/2024 12:43 PM T [facility] Blood Venous blood specimen / Unknown Venipuncture / Unknown 08/10/2024 11:43 AM EDT 08/10/2024 12:17 PM EDT us Shay Luna MD LAB BLOOD ORDERABLES Final Resu lt [facility] [address] [place] [address], * B-type natriuretic peptide (08/10/2024 11:43 AM EDT) BNP 4 <=100 pcg/mL LAB CHEMISTRY METHOD 08/10/2024 1:08 PM EDT [facility] Blood Venous blood specimen / Unknown Venipuncture / Unknown 08/10/2024 11:43 AM EDT 08/10/2024 12:17 PM EDT us Shay Luna MD LAB BLOOD ORDERABLES Final Resu lt Performing Organization Address [facility]/ZIP Co de Phone Number [facility] [address] [place] [address], [place] [phone] * Magnesium (08/10/2024 11:43 AM EDT) [facility] Magnesium 2.1 1.9 - 2.6 mg/dL LAB CHEMISTRY METHOD 08/10/2024 1:07 PM EDT [facility] Comment:Hemolysis present Blood Venous blood specimen / Unknown Venipuncture / Unknown 08/10/2024 11:43 AM EDT 08/10/2024 12:17 PM EDT us Shay Luna MD LAB BLOOD ORDERABLES Final Resu lt Performing Organization Address [facility] de Phone Number [facility] [address] [place] [address], [place] [phone] * Lipase (08/10/2024 11:43 AM EDT) [facility] Lipase 50 13 - 75 unit/L LAB CHEMISTRY METHOD 08/10/2024 1:07 PM EDT [facility] Blood Venous blood specimen / Unknown Venipuncture / Unknown 08/10/2024 11:43 AM EDT 08/10/2024 12:17 PM EDT us Shay Luna MD LAB BLOOD ORDERABLES Final Resu lt Performing Organization Address [facility]/ZIP Co de Phone Number [facility] [address] [place] [address], [place] [phone] * (ABNORMAL) Comprehensive metabolic panel (08/10/2024 11:43 AM EDT) Only the most recent of2 resultswithin the time period is included. Sodium 133 133 - 145 mmol/L LAB CHEMISTRY METHOD 08/10/2024 1:07 PM [facility] Potassium 4.3 3.5 - 5.5 mmol/L LAB CHEMISTRY METHOD 08/10/2024 1:07 PM [facility] Comment:Hemolysis present Chloride 99 96 - 110 mmol/L LAB CHEMISTRY METHOD 08/10/2024 1:07 PM [facility] CO2 23 21 - 32 mmol/L LAB CHEMISTRY METHOD 08/10/2024 1:07 PM [facility] Anion Gap 11 3 - 11 LAB CHEMISTRY METHOD 08/10/2024 1:07 PM [facility] Glucose 303(H) 70 - 100 mg/dL LAB CHEMISTRY METHOD 08/10/2024 1:07 PM [facility] BUN 15 5 - 25 mg/dL LAB CHEMISTRY METHOD 08/10/2024 1:07 PM [facility] Creatinine 0.82 0.70 - 1.30 mg/dL LAB CHEMISTRY METHOD 08/10/2024 1:07 PM [facility] eGFR 110 >=60 mL/min/1. 73m2 LAB CHEMISTRY METHOD 08/10/2024 1:07 PM [facility] Comment:Calculation based on the Chronic Kidney Disease Epidemiology Collaboration (CKD-EPI) equation refit without adjustment for race. BUN/Creatinine Ratio 18.3 LAB CHEMISTRY METHOD 08/10/2024 1:07 PM [facility] Calcium 9.6 8.5 - 10.5 mg/dL LAB CHEMISTRY METHOD 08/10/2024 1:07 PM [facility] AST (SGOT) 18 10 - 42 unit/L LAB CHEMISTRY METHOD 08/10/2024 1:07 PM EDT [facility] Comment:Hemolysis present ALT (SGPT) 27 10 - 60 unit/L LAB CHEMISTRY METHOD 08/10/2024 1:07 PM EDT [facility] Alkaline Phosphatase 88 42 - 121 unit/L LAB CHEMISTRY METHOD 08/10/2024 1:07 PM EDT [facility] Total Protein 7.4 6.0 - 8.0 g/dL LAB CHEMISTRY METHOD 08/10/2024 1:07 PM EDT [facility] Albumin 4.2 3.2 - 5.0 g/dL LAB CHEMISTRY METHOD 08/10/2024 1:07 PM EDT [facility] Total Bilirubin 1.2 0.0 - 1.4 mg/dL LAB CHEMISTRY METHOD 08/10/2024 1:07 PM EDT [facility] Blood Venous blood specimen / Unknown Venipuncture / Unknown 08/10/2024 11:43 AM EDT 08/10/2024 12:17 PM EDT us Shay Luna MD LAB BLOOD ORDERABLES Final Resu lt [facility] [address] [place] [address], * XR Chest 2 Views (07/16/2024 8:31 AM EDT) Anatomical Region Laterality Modality Body Radiographic Darlene ging 07/16/2024 8:34 AM EDT Impressions 07/16/2024 8:36 AM EDT No acute cardiopulmonary abnormality. -------- FINAL REPORT -------- Dictated By: Elizabeth Edwards Dictated Date: 07/16/2024 08:34 ET Assigned Physician: Elizabeth Edwards Reviewed and Electronically Signed By: Elizabeth Edwards Signed Date: 07/16/2024 08:36 ET Workstation ID: [id number] Transcribed By: Self Edit Transcribed Date: 07/16/2024 08:34 ET Narrative 07/16/2024 8:36 AM EDT XR CHEST 2 VIEWS Reason: persistant cough Comparison: Chest radiograph on June 28, 2023 FINDINGS: Lungs: No focal consolidation. ??No pulmonary edema. Pleura: No pleural effusion or pneumothorax. Heart/Mediastinum: Cardiomediastinal silhouette is within normal limits. Bones : No acute findings Procedure Note Elizabeth Edwards MD - 07/16/2024 XR CHEST 2 VIEWS Reason: persistant cough Comparison: Chest radiograph on June 28, 2023 FINDINGS: Lungs: No focal consolidation. No pulmonary edema. Pleura: No pleural effusion or pneumothorax. Heart/Mediastinum: Cardiomediastinal silhouette is within normal limits. Bones : No acute findings IMPRESSION: No acute cardiopulmonary abnormality. -------- FINAL REPORT -------- Dictated By: Elizabeth Edwards Dictated Date: 07/16/2024 08:34 ET Assigned Physician: Elizabeth Ewdards Reviewed and Electronically Signed By: Elizabeth Edwards Signed Date: 07/16/2024 08:36 ET Workstation ID: [id number] Transcribed By: Self Edit Transcribed Date: 07/16/2024 08:34 ET us Elissa Mccauley HUMAN RESOURCES HR REPRESENTATIVE IMG XR PROCEDURES Final Result * Interferon gamma interpretation (07/16/2024 8:21 AM EDT) Quantiferon Plus Interpretation Negative Negative LAB CHEMISTRY METHOD 07/17/2024 10:39 AM EDT [facility] Blood Venous blood specimen / Unknown Venipuncture / Unknown 07/16/2024 8:21 AM EDT 07/16/2024 8:21 AM EDT us Elissa Mccauley HUMAN RESOURCES HR REPRESENTATIVE LAB BLOOD ORDERABLES Fi nal Result [facility] [address] [place] [address], [place] [phone] * Interferon gamma antigen 2 (07/16/2024 8:21 AM EDT) Blood Venous blood specimen / Unknown Venipuncture / Unknown 07/16/2024 8:21 AM EDT 07/16/2024 8:21 AM EDT Elissa Parisa HUMAN RESOURCES HR REPRESENTATIVE LAB BLOOD ORDERABLES Fi nal Result Performing Organization Address City/[facility]/ZIP Co de Phone Number [facility] [address] [place] [address], [place] [phone] * Inteferon gamma antigen 1 (07/16/2024 8:21 AM EDT) Blood Venous blood specimen / Unknown Venipuncture / Unknown 07/16/2024 8:21 AM EDT 07/16/2024 8:21 AM EDT Elissa Mccauley HUMAN RESOURCES HR REPRESENTATIVE LAB BLOOD ORDERABLES Fi nal Result Performing Organization Address City/[facility] Co de Phone Number [facility] [address] [place] [address], [place] [phone] * Interferon gamma mitogen (07/16/2024 8:21 AM EDT) Blood Venous blood specimen / Unknown Venipuncture / Unknown 07/16/2024 8:21 AM EDT 07/16/2024 8:21 AM EDT Elissa Parisa HUMAN RESOURCES HR REPRESENTATIVE LAB BLOOD ORDERABLES Fi nal Result Performing Organization Address City/[facility] Co de Phone Number [facility] [address] [place] [address], [place] [phone] * Interferon gamma NIL (07/16/2024 8:21 AM EDT) Blood Venous blood specimen / Unknown Venipuncture / Unknown 07/16/2024 8:21 AM EDT 07/16/2024 8:21 AM EDT Elissa Mccauley HUMAN RESOURCES HR REPRESENTATIVE LAB BLOOD ORDERABLES Fi nal Result [facility] [address] [place] [address], [place] [phone] * Mycoplasma pneumoniae antibody IgM (07/16/2024 8:21 AM EDT) [facility] Mycoplasma Antibody IgM 0.37 <=0.90 INDEX 07/20/2024 5:41 AM EDT [facility] Comment: Negative: No antibody detected Test performed at [facility], [address], [place], [place] ??[address] ? [phone] Ellyn Flores MD, PhD - Compensation And Hris Analyst Blood Venous blood specimen / Unknown Venipuncture / Unknown 07/16/2024 8:21 AM EDT 07/16/2024 8:21 AM EDT Elissa Mccauley HUMAN RESOURCES HR REPRESENTATIVE LAB BLOOD ORDERABLES Fi nal Result [facility] [address] [place] [address] * (ABNORMAL) POC glucose manually resulted (06/29/2024 7:58 AM EDT) [facility] Glucose POC 417 mg/dL Blood Capillary blood specimen / Unknown 06/29/2024 7:58 AM EDT Saurav MARTINS POINT OF CARE TEST ENTER/EDIT ORDERABLES Final Result * (ABNORMAL) Lipid panel with reflex to direct LDL (06/15/2024 11:17 AM EDT) [facility] Cholesterol 223(H) 0 - 200 mg/dL LAB CHEMISTRY METHOD 06/15/2024 4:24 PM EDT [facility] Triglycerides 254(H) 0 - 150 mg/dL LAB CHEMISTRY METHOD 06/15/2024 4:24 PM EDT [facility] HDL 44 >=40 mg/dL LAB CHEMISTRY METHOD 06/15/2024 4:24 PM EDT [facility] LDL Calculated 128(H) 0 - 100 mg/dL LAB CHEMISTRY METHOD 06/15/2024 4:24 PM EDT [facility] VLDL Cholesterol Jose 50.8 mg/dL LAB CHEMISTRY METHOD 06/15/2024 4:24 PM EDT [facility] Non HDL Chol. (LDL+VLDL) 179(H) <145 mg/dL LAB CHEMISTRY METHOD 06/15/2024 4:24 PM EDT [facility] Chol/HDL Ratio 5.1(H) 0.0 - 4.4 LAB CHEMISTRY METHOD 06/15/2024 4:24 PM EDT [facility] Blood Venous blood specimen / Unknown Venipuncture / Unknown 06/15/2024 11:17 AM EDT 06/15/2024 11:17 AM EDT us Saurav MARTINS LAB BLOOD ORDERABLES Final Res ult [facility] [address] [place] [address], [place] [phone] * (ABNORMAL) Allergen respiratory profile area 1 [place] IgE (06/15/2024 11:17 AM EDT) Alternaria alternata, IgE <0.10 <0.10 kU/L 06/18/2024 3:16 PM EDT [facility] Alternaria alternata Class CLASS 0 06/18/2024 3:16 PM EDT [facility] Aspergillus fumigatus, IgE <0.10 <0.10 kU/L 06/18/2024 3:16 PM EDT [facility] Aspergillus fumigatus Class CLASS 0 06/18/2024 3:16 PM EDT [facility] Bermuda Grass, IgE <0.10 <0.10 kU/L 06/18/2024 3:16 PM EDT [facility] Bermuda Grass Class CLASS 0 06/18 3:16 PM EDT [facility] Common Silver Birch, IgE 0.10 <0.10 kU/L 06/18/2024 3:16 PM EDT [facility] Common Silver Birch Class CLASS 0/1 06/18/2024 3:16 PM EDT [facility] Cat Dander, IgE <0.10 <0.10 kU/L 06/18/2024 3:16 PM EDT [facility] Cat Dander Class CLASS 0 06/19/19 3:16 PM EDT [facility] Cladosporium herbarum, IgE <0.10 <0.10 kU/L 06/18/2024 3:16 PM EDT [facility] Cladosporium herbarum Class CLASS 0 06/18/2024 3:16 PM EDT [facility] Cockroach, Lithuanian, IgE <0.10 <0.10 kU/L 06/18/2024 3:16 PM EDT [facility] Cockroach, Lithuanian Class CLASS 0 06/18/2024 3:16 PM EDT [facility] Alda, IgE <0.10 <0.10 kU/L 06/18/2024 3:16 PM EDT [facility] Alda Class CLASS 0 06/19/19 3:16 PM EDT [facility] Dermatophagoides farinae, IgE <0.10 <0.10 kU/L 06/18/2024 3:16 PM EDT [facility] Dermatophagoides farinae Class CLASS 0 06/18/2024 3:16 PM EDT [facility] Dermatophagoides pteronyssinus, IgE <0.10 <0.10 kU/L 06/18/2024 3:16 PM EDT [facility] Dermatophagoides pteronyssinus Class CLASS 0 06/18/2024 3:16 PM EDT [facility] Dog Dander, IgE <0.10 <0.10 kU/L 06/18/2024 3:16 PM EDT [facility] Dog Dander Class CLASS 0 06/19/19 3:16 PM EDT [facility] Elm, IgE <0.10 <0.10 kU/L 06/18/2024 3:16 PM EDT [facility] Elm Class CLASS 0 06/18/2024 3:16 PM EDT [facility] Maple (Marion), IgE <0.10 <0.10 kU/L 06/18/2024 3:16 PM EDT [facility] Maple (Marion) Class CLASS 0 06/18/2024 3:16 PM EDT [facility] Maple Falling Spring Syc., Andrea Plane, IgE <0.10 <0.10 kU/L 06/18/2024 3:16 PM EDT [facility] Maple Falling Spring Syc, Andrea Plane Class CLASS 0 06/18/2024 3:16 PM EDT [facility] Mountain Juniper, IgE <0.10 <0.10 kU/L 06/18/2024 3:16 PM EDT [facility] Mountain Juniper Class CLASS 0 06/18/2024 3:16 PM EDT [facility] Mouse Urine Proteins, IgE <0.10 0.10 kU/L 06/18/2024 3:16 PM EDT [facility] Mouse Urine Proteins Class CLASS 0 06/18/2024 3:16 PM EDT [facility] Mugwort (sagebrush), IgE <0.10 <0.10 kU/L 06/18/2024 3:16 PM EDT [facility] Mugwort (sagebrush) Class CLASS 0 06/18/2024 3:16 PM EDT [facility] Worthington, IgE <0.10 <0.10 kU/L 06/18/2024 3:16 PM EDT [facility] [place] Class CLASS 0 06/18/2024 3:16 PM EDT [facility] [place], IgE <0.10 <0.10 kU/L 06/18/2024 3:16 PM EDT [facility] [place] Class CLASS 0 06/18/2024 3:16 PM EDT [facility] Penicillium chrysogenum, IgE <0.10 <0.10 kU/L 06/18/2024 3:16 PM EDT [facility] Penicillium chrysogenum Class CLASS 0 06/18/2024 3:16 PM EDT [facility] Common Pigweed, IgE <0.10 <0.10 kU/L 06/18/2024 3:16 PM EDT [facility] Common Pigweed Class CLASS 0 05/31 3:16 PM EDT [facility] Common Ragweed (short), IgE 0.36(H) <0.10 kU/L 06/18/2024 3:16 PM EDT [facility] Common Ragweed (short) Class CLASS 1 06/18/2024 3:16 PM EDT [facility] Sheep Fenwood, IgE <0.10 <0.10 kU/L 06/18/2024 3:16 PM EDT [facility] Sheep Fenwood Class CLASS 0 2024 3:16 PM EDT [facility] Adalberto Grass, IgE <0.10 <0.10 kU/L 06/18/2024 3:16 PM EDT [facility] Adalberto Grass Class CLASS 0 06/18 3:16 PM EDT [facility] Seneca Tree, IgE <0.10 <0.10 kU/L 06/18/2024 3:16 PM EDT [facility] Seneca Tree Class CLASS 0 025 3:16 PM EDT [facility] White Ezequiel, IgE <0.10 <0.10 kU/L 06/18/2024 3:16 PM EDT [facility] White Ezequiel Class CLASS 0 3:16 PM EDT [facility] IgE <2.0 <114.0 IU/mL 06/18/2024 3:16 PM EDT [facility] Allergy Interpretation See Below 06/18/2024 3:16 PM EDT [facility] Comment: ?Level of Allergen CLASS ?? kU/L ?Specific IgE Antibody ----- ? 0 ? <0.10 ? Undetectable 0/1 ? 0.10 - 0.34 ? Very Low Level 1 ? 0.35 - 0.69 ? Low Level 2 ? 0.70 - 3.49 ? Moderate Level 3 ? 3.50 - 17.4 ? High Level 4 ? 17.5 - 49.9 ? Very High Level 5 ? 50.0 - 100.0 ?Very High Level 6 ? >100.0 ?Very High Level Test performed at [facility], [address] , [place], [place] ??[address] ? [phone] Ellyn Flores MD, PhD - Compensation And Hris Analyst Blood Venous blood specimen / Unknown Venipuncture / Unknown 06/15/2024 11:17 AM EDT 06/15/2024 11:17 AM EDT us Elissa Mccauley HUMAN RESOURCES HR REPRESENTATIVE LAB BLOOD ORDERABLES Fi nal Result Performing Organization Address City/[facility]/ZIP Co de Phone Number [facility] [address] [place] [address] * Microalbumin creatinine urine ratio (06/15/2024 11:17 AM EDT) Creatinine, Urine 44.0 mg/dL LAB CHEMISTRY METHOD 06/15/2024 4:26 PM EDT [facility] Microalb, Ur 6.5 0.0 - 29.0 mg/L LAB CHEMISTRY METHOD 06/15/2024 4:26 PM EDT [facility] Microalb/Creat Ratio 15 <30 mg/g creat LAB CHEMISTRY METHOD 06/15/2024 4:26 PM EDT [facility] Urine Urine specimen obtained by clean catch procedure / Unknown Non-blood Collection / Unknown 06/15/2024 11:17 AM EDT 06/15/2024 11:17 AM EDT us Saurav Raines PA LAB URINE ORDERABLES Final Res ult [facility]) [facility] [address] [place] [address], [place] [phone] * (ABNORMAL) Hemoglobin A1c (06/15/2024 11:17 AM EDT) Hemoglobin A1C 11.3(H) <6.5 % LAB CHEMISTRY METHOD 06/15/2024 6:57 PM EDT [facility] Mean Bld Glu Estim. 278 mg/dL LAB CHEMISTRY METHOD 06/15/2024 6:57 PM EDT [facility] Blood Venous blood specimen / Unknown Venipuncture / Unknown 06/15/2024 11:17 AM EDT 06/15/2024 11:17 AM EDT Saurav MARTINS LAB BLOOD ORDERABLES Final Res ult [facility] [address] [place] [address], from Last [address] [address] Care Teams Dealmaker Relationship Specialty Start Date End Date Lynn Jackson MD [address] [place] [id number] PCP - General Internal Medicine 04/27/24
--- NOTE | 2024-08-11 08:06 | AM.OFFWIN_ITS ---
Intake Vital Signs 08/11/24 08:12 Height 5 ft 10 in Weight 181 lb 8 oz BMI 26.0 BP 106/66 Blood Pressure Location Lt brachial Position Sitting Pulse 80 Pulse Source Pulse Oximeter Temp 98.5 F Temp Source Oral Pulse Oximetry (%) 99 Intake Visit Reasons: EP- Intake Note: patient is here for c/l sinus infection x4 days Patient Tobacco Use Status: Never used Tobacco Allergies No Known Allergies Allergy (Verified 08/11/24 08:15) Do you need a note to return to daycare/school/sports/work: Yes HPI HPI Comments History of Present Illness Details History - The patient is a 44-year-old male pres enting with a sinus infection. - The infection has persisted for at [address] [facility] four days, with the last two marked by intense headaches and congestion. - The headaches are severe upon awakenin g, resulting in limited mobility. - Nasal discharge is noted when blowing the nose, alongside mild coughing. - A mild fever was present yesterday but has since decreased. - Shortness of breath is reported, thoug h there is no associated ear pain. - The patient attempted symptom relief w ith Claritin, without results, and is using an unspecified saline nasal spray. - Tylenol and ibuprofen have been ineffe ctive in relieving the headaches. - Symptoms slightly affect the chest, bu t no significant lower respiratory symptoms are observed. Physical Exam General: Cooperative, healthy appearing, comfortable and no acute distress Orientation/consciousness: Patient oriented x3 Limitations: No limitations Head: Normal to inspection Ears: Hearing grossly normal bilaterally, external ears normal and TM's normal bilaterally Nose: Normal external nose present, Normal nares present and No nasal discharge present Face and sinus: Normal facial exam and maxillary sinuses tender Mouth: Normal oral and palatal mucosa present and moist mucous membranes Throat: Yes tonsils normal, Yes uvula midline. Posterior oropharynx erythema Eyes: Appearance normal, both eyes and all related structures Neck: Normal visual inspection Respiratory: Clear to auscultation bilaterally. Normal respiratory effort, able to speak in complete sentences, Actively coughing, no respiratory distress, not tachypneic, no tripod positioning and no use of accessory muscles Cardiovascular: Regular rate and rhythm. Normal S1 and S2 Skin: No rashes or lesions noted Neuro: Patient oriented x3 Extremities: Normal to inspection and Yes no clubbing, cyanosis or edema [facility] Medical History Diabetes Social History Patient Tobacco Use Status: Never used Tobacco Review of Systems Const All systems reviewed & are unremarkable except as noted in HPI and below Physical Exam Vital Signs: Last Vital Signs Temp 98.5 F 08/11/24 08:12 Pulse 80 08/11/24 08:12 BP 106/66 08/11/24 08:12 Pulse Ox 99 08/11/24 08:12 BMI result Body Mass Index 26.0 Assessment & Plan Assessment & Plan (1) Sinusitis: Code(s): J32.9 - Chronic sinusitis, unspecified Qualifiers: Chronicity: acute Sinusitis location: maxillary Recurrence: non- recurrent Qualified Code(s): J01.00 - Acute maxillary sinusitis, unspecified Plan: VSS, pt well appearing and PE unremarkable. The patient is treated for acute viral rhinosinusitis with an eight-day course of prednisone to mitigate infl ammation and manage severe symptoms. The dosing will be tapered appropriately. Flonase is recommended for nasal congestion and is to be used with correct administration techniques. Saline nasal spray is advised to be used between Flonase applications to maintain moisture and alleviate dryness. Neti pot rinses may be employed with distilled water for nasal clearance. The addition of Benadryl at night is optional based on tolerance. A follow-up is suggested if conditions do not improve within the expected timeframe. Patient was informed and verbally consented to the use of an ambient scribe for clinic note documentation during this visit Medications: New prednisone take 4 tablets on days 1-2, take 3 tablets on days 3-4, take 2 tablets on days 5-6, take 1 tablet on days 7-8. 10 mg PO DIRECTED 20 tabs 0RF Coding Level of Care Code New Pt Level 3 (13202) Diagnoses Acute non-recurrent maxillary sinusitis J01.00 Chronicity: acute Sinusitis location: maxillary Recurrence: non-recurrent
[2024-08-11 08:12] VITALS: BP 106/66; PULSE 80; TEMP 36.9; O2SAT 99; BMI 26.0
== END 2024-08-11 08:36 | disposition home or self-care (01) ==
PROVIDERS: PCP Internal Medicine; Visit Provider Physician Assistant
DX: J01.00 Acute maxillary sinusitis, unspecified (principal)

== ENCOUNTER → 2024-08-11 07:59 | Outpatient (BNVA) | payer OTHER, SELFPAY | PROVIDERS: PCP Internal Medicine; Visit Provider Physician Assistant | DX: Z13.89 Encounter for screening for other disorder (principal) ==